=== PATIENT | female | born 1955 | race Caucasian/White ===

== ENCOUNTER 2016-07-21 21:34 | Observation (INO) | payer MEDICAID ==
[~2016-07-21] VITALS: Ht 154.9 cm; Wt 71.8 kg
[~2016-07-21 21:34] MED LIST: ALDACTONE100 MG PO; ALDACTONE50 MG PO; ALLEGRA-D1 TAB.SR . PO; ASPIRIN81 MG PO; BRILINTA90 MG PO; CHRONULAC30 ML PO; EPOGEN20000 U/ML SQ; HYDROCHLOROTH12.5 M1 PO; HYDROCODONE-APA1 TAB PO; IPRAT-ALBUT 0.5-3 ML UPD; K-DUR20 MEQ PO; K-TAB10 MEQ PO; KLOR-CON 1010 MEQ PO; LASIX40 MG PO; LASIX80 MG PO; LEVAQUIN500 MG PO; LEVAQUIN750 MG PO; METOLAZONE2.5 MG PO; MUCINEX600 MG PO; MUCUS RELIEF400 MG PO; NORCO 10/325 TA1 TA1 PO; OXYCODONE HCL5 MG PO; OXYCONTIN10 MG PO; PHENERGAN25 M1 PO; RIBASPHERE200 MG PO; SOVALDI PO; TESSALON PERLE100 MG PO; XIFAXAN550 MG PO; ZANAFLEX4 MG PO; ZOFRAN4 MG PO; ZOFRAN8 MG PO
[2016-07-21 22:23] LABS: BASOPHILS 0.3 % (0-2); EOSINOPHILS 0.6 % (0-7); HEMATOCRIT 28.7 % (36.0-48.0); HEMOGLOBIN 9.8 g/dL (12-16); LYMPHOCYTES 24.9 % (15-50); MCH 35.1 pg (26.0-34.0); MCHC 34.1 g/dL (31.0-37.0); MCV 102.9 fL (80.0-100.0); MEAN PLATELET VOLUME 9.4 fL (7.4-10.4); MONOCYTES 12.6 % (2-11); NEUTROPHILS 61.6 % (40-80); RBC 2.79 10x6/uL (4.00-5.40); WBC 3.2 10x3/uL (4.8-10.8)
[2016-07-21 22:24] LABS: PLATELET COUNT 102 10x3/uL (130-400)
[2016-07-21 22:44] LABS: ALBUMIN 2.7 g/dL (3.4-5.0); ANION GAP 11.6 mmol/L (8-16); BILIRUBIN - TOTAL 3.32 mg/dL (0.2-1.3); CALCIUM 9.1 mg/dL (8.5-10.1); POTASSIUM - SERUM 3.6 mmol/L (3.5-5.1); PROTEIN - SERUM 6.6 g/dL (6.4-8.2)
[2016-07-21 22:52] LABS: APPEARANCE HAZY (CLEAR); BILIRUBIN NEGATIVE (NEGATIVE); COLOR YELLOW (YELLOW); GLUCOSE NEGATIVE (NEGATIVE); KETONE NEGATIVE (NEGATIVE); LEUKOCYTE ESTERASE TRACE (NEGATIVE); NITRITE NEGATIVE (NEGATIVE); PROTEIN NEGATIVE (NEGATIVE); SPECIFIC GRAVITY 1.025 (1.005-1.020)
[2016-07-21 22:54] LABS: BACTERIA MODERATE /hpf (NONE SEEN); EPITHELIAL CELLS 0-5 /hpf (0-5); MUCUS <1+ /lpf (NONE SEEN); RED CELLS - URINE 0-5 /hpf (0-5); WHITE CELLS - URINE 0-5 /hpf (0-5); YEAST <1+ /hpf (NONE SEEN)
[2016-07-21 22:58] LABS: UDS - AMPHET NEGATIVE QUAL (NEGATIVE); UDS - BARB NEGATIVE QUAL (NEGATIVE); UDS - BENZO NEGATIVE QUAL (NEGATIVE); UDS - COCAINE NEGATIVE QUAL (NEGATIVE); UDS - METH NEGATIVE QUAL (NEGATIVE); UDS - OPIATE NEGATIVE QUAL (NEGATIVE); UDS - PCP NEGATIVE QUAL (NEGATIVE); UDS - THC NEGATIVE QUAL (NEGATIVE)
[2016-07-22] VITALS (7 sets, daily range): BP systolic 94–138; BP diastolic 52–68; Ht 154.9 cm; Wt 71.8 kg
--- NOTE | 2016-07-22 03:18 | NUR ---
PT ADMITTED TO ROOM 2129 AT 0130 FROM ER. ALERT/ORIENTED; ABLE TO TRANSFER SELF INTO BED AND THEN AMBULATE AROUND ROOM WITHOUT . ADMISSION HISTORY AND ASSESSMENT INITIATED. IVF NS @ 50ML/HR INFUSING.
--- NOTE | 2016-07-22 10:22 | NUR ---
ASSESSMENT COMPLETED. DENIES ANY NEEDS. TELEMERTY SHOWS SR AT 99. PT IS UP AB ANDREEA. WILL MONITOR
[2016-07-22 11:20] LABS: HEMATOCRIT 24.5 % (36.0-48.0); HEMOGLOBIN 8.4 g/dL (12-16); MCH 35.4 pg (26.0-34.0); MCHC 34.3 g/dL (31.0-37.0); MCV 103.4 fL (80.0-100.0); MEAN PLATELET VOLUME 9.1 fL (7.4-10.4); RBC 2.37 10x6/uL (4.00-5.40); RDW 16.1 % (11.5-14.5); WBC 2.5 10x3/uL (4.8-10.8)
[2016-07-22 11:27] LABS: PLATELET COUNT 76 10x3/uL (130-400)
[2016-07-22 11:41] LABS: ALBUMIN 2.2 g/dL (3.4-5.0); ANION GAP 9.1 mmol/L (8-16); BILIRUBIN - TOTAL 2.54 mg/dL (0.2-1.3); CALCIUM 8.1 mg/dL (8.5-10.1); CARBON DIOXIDE 26.4 mmol/L (21.0-32.0); CREATININE - SERUM 0.9 mg/dL (0.6-1.3); POTASSIUM - SERUM 3.5 mmol/L (3.5-5.1); PROTEIN - SERUM 5.4 g/dL (6.4-8.2)
[2016-07-22 12:26] LABS: EOSINOPHILS 2 % (0-7); LYMPHOCYTES 50 % (15-50); MONOCYTES 3 % (2-11); NEUTROPHILS 45 % (40-80); PLATELET ESTIMATE DECREASED
--- NOTE | 2016-07-22 12:27 | NUR ---
RESTING QUIETLY NAD NOTED SIGNIFICANT OTHER AT BEDSIDE
--- NOTE | 2016-07-22 14:54 | NUR ---
LYING QUIETLY. DENIES ANY NEEDS. TELEMERTY SHOWS SR. WILL MONITOR
[2016-07-22 17:03] LABS: INR 1.6 (0.85-1.17)
[2016-07-22 17:40] LABS: BASOPHILS 1.9 % (0-2); EOSINOPHILS 3.4 % (0-7); HEMATOCRIT 25.9 % (36.0-48.0); HEMOGLOBIN 8.8 g/dL (12-16); IMMATURE GRANULOCYTES 1.1 % (0-5); MCH 34.5 pg (26.0-34.0); MCV 101.6 fL (80.0-100.0); MEAN PLATELET VOLUME 9.9 fL (7.4-10.4); MONOCYTES 9.2 % (2-11); NEUTROPHILS 35.4 % (40-80); PLATELET COUNT 81 10x3/uL (130-400); RBC 2.55 10x6/uL (4.00-5.40); RDW 15.8 % (11.5-14.5); WBC 2.6 10x3/uL (4.8-10.8)
--- NOTE | 2016-07-22 18:37 | NUR ---
UP TO BATHROOM. DENIES ANY NEEDS. TELEMETRY SHOWS SR. WILL MONITOR
--- NOTE | 2016-07-22 19:58 | NUR ---
RESUME CARE OF PT, [id number], IV-L. HAND-COMPLAINS IT IS HURTING, CALL GABRIEL PALACIOS TO RESTART IV, BED IS LOW, SRX2, FAMILY AT BEDSIDE, CALL LIGHT IN REACH, WILL CONTINUE WITH PLAN OF CARE
[2016-07-23 00:07] LABS: HEMATOCRIT 24.8 % (36.0-48.0); HEMOGLOBIN 8.8 g/dL (12-16); LYMPHOCYTES 35.3 % (15-50); MCH 35.6 pg (26.0-34.0); MCHC 35.5 g/dL (31.0-37.0); MCV 100.4 fL (80.0-100.0); MEAN PLATELET VOLUME 8.6 fL (7.4-10.4); NEUTROPHILS 50.9 % (40-80); RBC 2.47 10x6/uL (4.00-5.40); RDW 16.6 % (11.5-14.5); WBC 2.9 10x3/uL (4.8-10.8)
[2016-07-23 00:13] LABS: PLATELET COUNT 98 10x3/uL (130-400)
--- NOTE | 2016-07-23 00:30 | NUR ---
MANGLE TENDER CLOTH AT BEDSIDE FOR VS. NEEDS ADDRESSED, CALL LIGHT IN REACH. WILL CONT TO MONITOR.
--- NOTE | 2016-07-23 02:46 | NUR ---
ASSESSMENT COMPLETE, SLEEPING, FAMILY AT BEDSIDE, CALL LIGHT IN REACH, CONTINUE PLAN OF CARE
[2016-07-23 06:03] LABS: BASOPHILS 0.8 % (0-2); EOSINOPHILS 5.3 % (0-7); HEMATOCRIT 27.3 % (36.0-48.0); HEMOGLOBIN 9.4 g/dL (12-16); LYMPHOCYTES 38.5 % (15-50); MCH 35.6 pg (26.0-34.0); MCHC 34.4 g/dL (31.0-37.0); MEAN PLATELET VOLUME 9.6 fL (7.4-10.4); MONOCYTES 14.3 % (2-11); NEUTROPHILS 41.1 % (40-80); PLATELET COUNT 79 10x3/uL (130-400); RBC 2.64 10x6/uL (4.00-5.40); RDW 16.4 % (11.5-14.5); WBC 2.7 10x3/uL (4.8-10.8)
[2016-07-23 06:05] VITALS: BP 100/46
[2016-07-23 06:09] LABS: MCV 103.4 fL (80.0-100.0)
[2016-07-23 06:24] LABS: ALBUMIN 2.3 g/dL (3.4-5.0); ANION GAP 11.2 mmol/L (8-16); BILIRUBIN - TOTAL 2.2 mg/dL (0.2-1.3); CALCIUM 8.2 mg/dL (8.5-10.1); CARBON DIOXIDE 28.1 mmol/L (21.0-32.0); POTASSIUM - SERUM 3.3 mmol/L (3.5-5.1); PROTEIN - SERUM 5.7 g/dL (6.4-8.2)
--- NOTE | 2016-07-23 07:48 | NUR ---
ASSESSMENT DONE. DENIES NEEDS.
[2016-07-23 08:28] VITALS: BP 116/45
--- NOTE | 2016-07-23 09:48 | NUR ---
IV PATENT. CALL LIGHT IN REACH. NO NEEDS VOICED. WILL MONITOR.
[2016-07-23 11:21] LABS: BASOPHILS 1.2 % (0-2); HEMATOCRIT 26.3 % (36.0-48.0); HEMOGLOBIN 9.2 g/dL (12-16); MCH 36.1 pg (26.0-34.0); MCV 103.1 fL (80.0-100.0); MEAN PLATELET VOLUME 10.1 fL (7.4-10.4); MONOCYTES 13.9 % (2-11); NEUTROPHILS 45.9 % (40-80); PLATELET COUNT 82 10x3/uL (130-400); RBC 2.55 10x6/uL (4.00-5.40); RDW 16.2 % (11.5-14.5); WBC 2.6 10x3/uL (4.8-10.8)
--- NOTE | 2016-07-23 11:25 | NUR ---
PATIENT REFUSES SCD'S, UP AD ANDREEA. BEEN TO NURSES STATION X 2 FOR PAIN MEDICAION.
[2016-07-23 16:05] VITALS: BP 137/67
[2016-07-23 17:14] LABS: BASOPHILS 0.7 % (0-2); EOSINOPHILS 4.5 % (0-7); HEMATOCRIT 31.5 % (36.0-48.0); HEMOGLOBIN 10.8 g/dL (12-16); IMMATURE GRANULOCYTES 0.3 % (0-5); LYMPHOCYTES 38.7 % (15-50); MCH 35.9 pg (26.0-34.0); MCHC 34.3 g/dL (31.0-37.0); MCV 104.7 fL (80.0-100.0); MEAN PLATELET VOLUME 10.2 fL (7.4-10.4); MONOCYTES 13.2 % (2-11); NEUTROPHILS 42.6 % (40-80); PLATELET COUNT 91 10x3/uL (130-400); RBC 3.01 10x6/uL (4.00-5.40); RDW 16.1 % (11.5-14.5); WBC 2.9 10x3/uL (4.8-10.8)
--- NOTE | 2016-07-23 17:52 | NUR ---
WITHOUT CHANGES OR DISTRESS NOTED AT THIS TIME. DENIES NEEDS.
[2016-07-23 20:46] VITALS: BP 108/75
[2016-07-23 23:58] VITALS: BP 138/68
[2016-07-24 00:01] LABS: BASOPHILS 0.9 % (0-2); EOSINOPHILS 2.4 % (0-7); HEMATOCRIT 31.6 % (36.0-48.0); HEMOGLOBIN 10.9 g/dL (12-16); LYMPHOCYTES 24.5 % (15-50); MCH 36.1 pg (26.0-34.0); MCHC 34.5 g/dL (31.0-37.0); MCV 104.6 fL (80.0-100.0); MEAN PLATELET VOLUME 9.9 fL (7.4-10.4); MONOCYTES 12.7 % (2-11); NEUTROPHILS 59.5 % (40-80); PLATELET COUNT 104 10x3/uL (130-400); RBC 3.02 10x6/uL (4.00-5.40); RDW 16.3 % (11.5-14.5); WBC 3.4 10x3/uL (4.8-10.8)
--- NOTE | 2016-07-24 03:42 | NUR ---
ASSESSMENT DONE, ALERT AND ORIENTED, BED IN LOW LOCKED POSITION, CALL LIGHT AND WATER IN REACH, cpoc.
[2016-07-24 04:11] VITALS: BP 126/60
[2016-07-24 05:44] LABS: EOSINOPHILS 4.3 % (0-7); LYMPHOCYTES 33.6 % (15-50); MCH 36.1 pg (26.0-34.0); MCHC 34.5 g/dL (31.0-37.0); MCV 104.7 fL (80.0-100.0); MEAN PLATELET VOLUME 9.9 fL (7.4-10.4); MONOCYTES 14.5 % (2-11); NEUTROPHILS 46.6 % (40-80); PLATELET COUNT 94 10x3/uL (130-400); RBC 2.77 10x6/uL (4.00-5.40); RDW 16.4 % (11.5-14.5)
[2016-07-24 06:26] LABS: ALBUMIN 2.6 g/dL (3.4-5.0); BILIRUBIN - TOTAL 2.14 mg/dL (0.2-1.3); CALCIUM 8.6 mg/dL (8.5-10.1); CARBON DIOXIDE 28.8 mmol/L (21.0-32.0); POTASSIUM - SERUM 3.8 mmol/L (3.5-5.1); PROTEIN - SERUM 6.4 g/dL (6.4-8.2)
[2016-07-24 06:30] LABS: CREATININE - SERUM 1.3 mg/dL (0.6-1.3)
[2016-07-24 09:18] LABS: FOLATE (FOLIC ACID) - SERUM 7.5 ng/mL (>3.0)
[2016-07-24 09:49] VITALS: BP 120/51
--- NOTE | 2016-07-24 11:10 | NUR ---
PT TO GI LAB FOR EGD WITH TIYUE
--- NOTE | 2016-07-24 13:20 | NUR ---
PT BACK TO ROOM FROM GI LAB, REQUESTING FOOD AND LACTULOSE
[2016-07-24 14:11] LABS: BASOPHILS 0.9 % (0-2); EOSINOPHILS 3.7 % (0-7); HEMATOCRIT 31.6 % (36.0-48.0); HEMOGLOBIN 10.6 g/dL (12-16); LYMPHOCYTES 34.7 % (15-50); MCH 35.7 pg (26.0-34.0); MCHC 33.5 g/dL (31.0-37.0); MCV 106.4 fL (80.0-100.0); NEUTROPHILS 51.7 % (40-80); PLATELET COUNT 97 10x3/uL (130-400); RBC 2.97 10x6/uL (4.00-5.40); RDW 16.4 % (11.5-14.5); WBC 3.2 10x3/uL (4.8-10.8)
--- NOTE | 2016-07-24 14:54 | NUR ---
Nutrition education: Provided pt with end-stage liver disease diet. Reviewed with pt. Pt with fair understanding of information provided. Handout given. RDN name and phone number provided.
--- NOTE | 2016-07-24 16:45 | NUR ---
ADVISED PT OF PLAN TO DISCHARGE. PT ASKED ABOUT LAB VALUES INFORMATION PROVIDED TO PT.
--- NOTE | 2016-07-24 18:08 | NUR ---
DISCHARGE PAPERS PROVIDED AND SIGNED. TEACHING COMPLETED. PT DENIES ANY QUESTIONS OR CONCERNS. SON AT BEDSIDE TO TRANSPORT. NO FURTHER NEEDS.
== END 2016-07-24 18:40 | disposition home or self-care (01) ==
LOC: D.ER 21:34 → D.M2 07-22 01:03 → OBSVTIME 07-22 01:03 → D.M2 07-24 18:40
PROVIDERS: Emergency Medicine; Internal Medicine Gastroenterology; ADMIT Family Medicine Adult Medicine
DX: K72.90 Hepatic failure, unspecified without coma (principal); K74.60 Unspecified cirrhosis of liver; B18.2 Chronic viral hepatitis C; D69.6 Thrombocytopenia, unspecified; D64.9 Anemia, unspecified; K21.9 Gastro-esophageal reflux disease without esophagitis; I25.10 Atherosclerotic heart disease of native coronary artery without angina pectoris; I50.9 Heart failure, unspecified

== ENCOUNTER 2017-02-10 15:02 | Inpatient (IN) | payer MEDICAID ==
[~2017-02-10] VITALS: Ht 154.9 cm; Wt 76.0 kg
[2017-02-10 15:33] LABS: HEMATOCRIT 32.9 % (36.0-48.0); HEMOGLOBIN 11.6 g/dL (12-16); MCH 36.5 pg (26.0-34.0); MCHC 35.3 g/dL (31.0-37.0); MCV 103.5 fL (80.0-100.0); MEAN PLATELET VOLUME 10.5 fL (7.4-10.4); RBC 3.18 10x6/uL (4.00-5.40); RDW 15.6 % (11.5-14.5)
[2017-02-10 15:59] LABS: PLATELET COUNT 65 10x3/uL (130-400); WBC 1.1 10x3/uL (4.8-10.8)
[2017-02-10 16:04] LABS: ALBUMIN 2.4 g/dL (3.4-5.0); ALKALINE PHOSPHATASE 139 U/L (46-116); ALT (SGPT) 36 U/L (10-68); BILIRUBIN - TOTAL 1.59 mg/dL (0.2-1.3); CALCIUM 7.4 mg/dL (8.5-10.1); CARBON DIOXIDE 22.1 mmol/L (21.0-32.0); CHLORIDE - SERUM 106 mmol/L (98-107); CREATININE - SERUM 0.7 mg/dL (0.6-1.3); POTASSIUM - SERUM 3.9 mmol/L (3.5-5.1); PROTEIN - SERUM 5.9 g/dL (6.4-8.2); SODIUM 135 mmol/L (136-145); UREA NITROGEN 10 mg/dL (7-18); eGFR NON AFRICAN AMERICAN > 90 mL/min (90-120)
[2017-02-10 16:11] LABS: MAGNESIUM - SERUM 1.8 mg/dL (1.8-2.4); PRO BNP 57 pg/mL (0-125)
[2017-02-10 16:13] LABS: CALC OSMOLALITY 269 mosm/kg (275-300); GLUCOSE 123 mg/dL (74-106); TROPONIN-I < 0.017 ng/mL (0.000-0.060)
[2017-02-10 16:25] LABS: LYMPHOCYTES 50 % (15-50); MONOCYTES 4 % (2-11); NEUTROPHILS 42 % (40-80); PLATELET ESTIMATE DECREASED
[2017-02-10 16:59] LABS: APPEARANCE CLEAR (CLEAR); BILIRUBIN NEGATIVE (NEGATIVE); COLOR DK YELLOW (YELLOW); GLUCOSE NEGATIVE (NEGATIVE); KETONE NEGATIVE (NEGATIVE); NITRITE NEGATIVE (NEGATIVE); PROTEIN NEGATIVE (NEGATIVE); UROBILINOGEN NORMAL (NORMAL)
--- NOTE | 2017-02-10 18:00 | NUR ---
RECEIVED PT ON FLOOR FROM ER. ALERT AND ORIENTED X4. ORIENTED TO ROOM, FUNCTIONS OF CALL LIGHT AND TV. DENIES ANY NEEDS OR PAIN AT THIS TIME. BED IN LOWEST POSITION, SR X2. NO FAMILY AT BEDSIDE. RIGHT HAND IV 20G. WILL CONTINUE TO MONITOR
[2017-02-10 20:00] VITALS: BP 128/62
[2017-02-10 23:59] VITALS: BP 130/57; BMI 32.2
[2017-02-11 04:00] VITALS: BP 134/61
[2017-02-11 05:59] LABS: BASOPHILS 0 % (0-2); EOSINOPHILS 0 % (0-7); HEMATOCRIT 31.3 % (36.0-48.0); LYMPHOCYTES 16.7 % (15-50); MCH 35.9 pg (26.0-34.0); MCHC 35.1 g/dL (31.0-37.0); MCV 102.3 fL (80.0-100.0); MEAN PLATELET VOLUME 11.1 fL (7.4-10.4); MONOCYTES 10.3 % (2-11); PLATELET COUNT 60 10x3/uL (130-400); RBC 3.06 10x6/uL (4.00-5.40); RDW 15.2 % (11.5-14.5)
[2017-02-11 06:08] LABS: WBC 1.6 10x3/uL (4.8-10.8)
[2017-02-11 06:26] LABS: ALBUMIN 2.3 g/dL (3.4-5.0); ANION GAP 16.2 mmol/L (8-16); BILIRUBIN - TOTAL 1.16 mg/dL (0.2-1.3); CARBON DIOXIDE 20.8 mmol/L (21.0-32.0); CHOL - HDL RATIO 2.2 ratio (2.3-4.1); PROTEIN - SERUM 5.6 g/dL (6.4-8.2)
[2017-02-11 08:49] VITALS: BP 130/68
--- NOTE | 2017-02-11 10:51 | NUR ---
Patient Name: BRENDA CLANCY Admission Status: ER Accout number: [id number] Admission Date: 02-10-2017 : 1955 Admission Diagnosis: Attending: MIHIR MONROE Current LOS: 1 Anticipated DC Date: 02-14-2017 Planned Disposition: Home Primary Insurance: MEDICAID [place] Discharge Planning Comments: CM MET WITH PATIENT REGARDING D/C NEEDS AND PLANS. PATIENT STATED SHE LIVES WITH HER SON (MEMO) AND HIS (MARYLOU). FAMILY WILL DRIVE HER HOME AT DISCHARGE. PATIENT STATED SHE IS INDEPENDENT WITH HER CARE AND HAS A WALKER, WC, HOSP BED, SCOOTER, AND SHOWER CHAIR AT HOME. PATIENTS PCP IS DR. OH AND PHARMACY IS [facility]. PATIENT REFUSING HH AT THIS TIME. CM WILL CONTINUE TO FOLLOW PATIENT WITH D/C NEEDS AND PLANS. PCP DR. ALTHEA MARTIN [facility]- [phone] JOY (XHG) [phone] Medical Stenographer: Magda Juarez Is the patient Alert and Oriented? Yes 0 * How many steps to enter\exit or inside your home? 4 W/RAILS 0 * PCP DR. OH 0 * Pharmacy [facility] 0 * Preadmission Environment Home with Family 0 * ADLs Independent 0 * Equipment Hospital Bed Shower Chair Walker Wheelchair 0 * Other Equipment SCOOTER 0 * List name and contact numbers for known caregivers / representatives who currently or will assist patient after discharge: MARYLOU DIL) [phone] 0 * Community resources currently utilized None 0 * Additional services required to return to the preadmission environment? Yes 0 * Can the patient safely return to the preadmission environment? Yes 0 * Has this patient been hospitalized within the prior 30 days at any hospital? No 0 Grand Total: 0
[2017-02-11 12:10] VITALS: BP 179/74
[2017-02-11 15:42] VITALS: BMI 32.1
[2017-02-11 16:45] VITALS: BP 134/70
[2017-02-11 17:16] VITALS: BP 93/33; Ht 154.9 cm; Wt 76.0 kg
--- NOTE | 2017-02-11 19:45 | NUR ---
RECIEVED SHIFT REPORT. PT IS LYING IN BED. ALERT AND ORIENTED AND ABLE TO VERBALIZE NEEDS. NO IV ACCESS AT THIS TIME. PT IS AMBULATORY BUT WAS INSTRUCTED TO CALL FOR ANY ASSISTANCE NEEDED. PT STATES PAIN IS 9/10. SCD'S OFF AT THIS TIME PER PT REQUEST. ISOLATION PRECAUTIONS ARE IN PLACE. NO NEEDS ARE VERBALIZED AT THIS TIME. WILL CONTINUE TO MONITOR. SIDE RAILS ARE UP X 2. BED IS IN LOWEST POSITION. CALL LIGHT IS WITHIN REACH.
[2017-02-11 20:00] VITALS: BP 132/93
--- NOTE | 2017-02-11 21:08 | NUR ---
SHIFT ASSESSMENT COMPLETED. NIGHT MEDS GIVEN WITH NO PROBLEMS. PT C/O PAIN 12/25. ADMINISTERED PRESCRIBED PRN NORCO PER ORDER. DENIES FURTHER NEEDS. WILL MONITOR. ISOLATION PRECAUTIONS IN PLACE. SIDE RAILS X 2. BED LOW. CALL LIGHT IN REACH.
[2017-02-12 04:00] VITALS: BP 137/65
[2017-02-12 05:34] LABS: BASOPHILS 0.1 % (0-2); EOSINOPHILS 0.1 % (0-7); HEMATOCRIT 32.8 % (36.0-48.0); HEMOGLOBIN 11.4 g/dL (12-16); IMMATURE GRANULOCYTES 1.9 % (0-5); MCH 36.2 pg (26.0-34.0); MCHC 34.8 g/dL (31.0-37.0); MCV 104.1 fL (80.0-100.0); MEAN PLATELET VOLUME 10.9 fL (7.4-10.4); MONOCYTES 5.6 % (2-11); NEUTROPHILS 85.3 % (40-80); PLATELET COUNT 68 10x3/uL (130-400); RBC 3.15 10x6/uL (4.00-5.40); RDW 16.1 % (11.5-14.5)
[2017-02-12 05:57] LABS: ALBUMIN 2.4 g/dL (3.4-5.0); BILIRUBIN - TOTAL 2.14 mg/dL (0.2-1.3); CALCIUM 7.6 mg/dL (8.5-10.1); CREATININE - SERUM 0.9 mg/dL (0.6-1.3); POTASSIUM - SERUM 3.7 mmol/L (3.5-5.1); PROTEIN - SERUM 5.7 g/dL (6.4-8.2)
[2017-02-12 06:00] LABS: ANION GAP 10.6 mmol/L (8-16); CARBON DIOXIDE 28.1 mmol/L (21.0-32.0)
[2017-02-12 06:28] LABS: WBC 17.2 10x3/uL (4.8-10.8)
--- NOTE | 2017-02-12 07:30 | NUR ---
PT WAS RECEIVED LYING IN BED THIS AM. SHE IS AWAKE AND ALERT. LUNGS- WITH WHEEZING NOTED BILATERALLY HEART- RRR. ABD- SOFT, NONTENDER , BS+. EXT- NO EDEMA NOTED. IV PATENT R HAND. PT IS ON DROPLET ISOLATION. BED IS LOW. SIDE RAILS UP X 2 AND CALL LIGHT IN REACH. SCD'S INTACT.
[2017-02-12 08:40] VITALS: BP 124/58
--- NOTE | 2017-02-12 10:41 | NUR ---
PT IS SITTING UP IN BED. REQUEST TO SEE OLIVER JAMISON. BED IS LOW, SIDE RAILS UP X 2 AND CALL LIGHT IN REACH. INFORMED YAQUELIN OF REQUEST. PT OFFERS NO COMPLAINTS.
[2017-02-12 12:45] VITALS: BP 123/65
--- NOTE | 2017-02-12 14:13 | NUR ---
DR OH IS HERE TO SEE PT. WILL REVIEW NEW ORDERS.
--- NOTE | 2017-02-12 15:30 | NUR ---
DR MILLER IS HERE TO SEE PT. HE DISCUSSED PLAN OF CARE WITH PT AND SHE WAS SATISFIED WITH PLAN OF CARE. NEW ORDERS NOTED.
--- NOTE | 2017-02-12 15:40 | NUR ---
PT C/O PAIN AND WOULD LIKE PAIN MED. PAIN MED HAS BEEN CHANGED. OXY IR GIVEN 5M 2 PO.
--- NOTE | 2017-02-12 16:42 | NUR ---
PT IS RESTING IN BED. HER IS AT BEDSIDE. SHE OFFERS NO COMPLAINTS AT THIS TIME. BED IS LOW. SIDE RAILS UP X 2 AND CALL LIGHT IN REACH.
--- NOTE | 2017-02-12 17:22 | NUR ---
OT NOTE: PT COMPLETED EOB SITTING WITH DYNAMIC BALANCE AXS WITH SPV. THANK YOU, MIGUEL NAVARRETE/Elif
--- NOTE | 2017-02-12 18:49 | NUR ---
PT IS RESTING IN BED. SHE OFFERS NO COMPLAINTS. BED IS LOW, SIDE RAILS UP X 2 AND CALL LIGHT IN REACH.
--- NOTE | 2017-02-12 19:25 | NUR ---
RECIEVED SHIFT REPORT. PT IS LYING IN BED. ALERT AND ORIENTED AND ABLE TO VERBALIZE NEEDS. IV IS PATENT AND SALINE LOC. PT IS AMBULATORY BUT WAS INSTRUCTED TO CALL FOR ANY ASSISTANCE NEEDED. SCD'S OFF AT THIS TIME PER PT REQUEST. PT STATES PAIN IS 6/10. NO NEEDS ARE VERBALIZED AT THIS TIME. WILL CONTINUE TO MONITOR. ISOLATION PRECAUTIONS ARE IN PLACE. NO NEEDS ARE VERBALIZED AT THIS TIME. WILL CONTINUE TO MONITOR. SIDE RAILS ARE UP X 2. BED IS IN LOWEST POSITION. CALL LIGHT IS WITHIN REACH.
--- NOTE | 2017-02-12 22:22 | NUR ---
SHIFT ASSESSMENT COMPLETED. NIGHT MEDS GIVEN WITH NO PROBLEMS. PT REFUSED SCHEDULED ALDACTONE. PT C/O PAIN 09/24. ADMINISTERED PRESCRIBED PRN OXY IR PER ORDER. PT ALSO REQUESTING PRN ZANAFLEX. ADMINISTERED PER ORDER. DENIES FURTHER NEEDS. WILL MONITOR. SIDE RAILS X 2. BED LOW. CALL LIGHT IN REACH. ISOLATION PRECAUTIONS IN PLACE.
[2017-02-13 00:27] VITALS: BP 118/59
[2017-02-13 04:59] VITALS: BP 120/58
[2017-02-13 06:19] LABS: BASOPHILS 0.1 % (0-2); EOSINOPHILS 0.5 % (0-7); HEMATOCRIT 33.6 % (36.0-48.0); HEMOGLOBIN 11.8 g/dL (12-16); IMMATURE GRANULOCYTES 0.2 % (0-5); LYMPHOCYTES 15.6 % (15-50); MCH 36.5 pg (26.0-34.0); MCHC 35.1 g/dL (31.0-37.0); MEAN PLATELET VOLUME 10.2 fL (7.4-10.4); MONOCYTES 6.4 % (2-11); NEUTROPHILS 77.2 % (40-80); PLATELET COUNT 77 10x3/uL (130-400); RBC 3.23 10x6/uL (4.00-5.40); RDW 15.9 % (11.5-14.5)
[2017-02-13 06:22] LABS: WBC 11.4 10x3/uL (4.8-10.8)
[2017-02-13 07:00] LABS: ALBUMIN 2.5 g/dL (3.4-5.0); ANION GAP 10.6 mmol/L (8-16); BILIRUBIN - TOTAL 2.78 mg/dL (0.2-1.3); CALCIUM 8.3 mg/dL (8.5-10.1); CREATININE - SERUM 1.1 mg/dL (0.6-1.3); POTASSIUM - SERUM 3.6 mmol/L (3.5-5.1); PROTEIN - SERUM 6.3 g/dL (6.4-8.2)
--- NOTE | 2017-02-13 07:40 | NUR ---
PT IS LYING IN BED, RESTING. SHE STATES THAT SHE IS SLEEPY. FEMALE AT BESIDE. GEN- AWAKE AND ALERT. LUNGS- WITH WHEEZING BILATERALLY. HEART- RRR. SOFT WITH GENERALIZED TENDERNESS. EXT. WITH MINIMAL EDEMA. BED IS LOW. SIDE RAILS UP X 2 AND CALL LIGHT IN REACH. SHE REFUSES SCD'S. IV PATENT R HAND.
[2017-02-13 08:25] VITALS: BP 126/60
--- NOTE | 2017-02-13 10:17 | NUR ---
AM MEDS GIVEN. PT TOLERATED TAKING THEM WELL. OT WAS IN ROOM TO EVALUATE HER SWALLOWING. SHE OFFERS NO COMPLAINTS. PT IS NOW IN ROOM TO WALK PT.
--- NOTE | 2017-02-13 10:37 | NUR ---
OT NOTE: PT ABLE TO PERFORM B UE/LE EXS WITH MOD REST BREAKS TO COMPLETE 15 REPS FOR EACH EX. BED MOB AND TRANSFERS WITH SPV; ABLE TO HARSH SOCKS INDEP; TOILETING WITH SPV TAWNYA AGUIRREOTR/L
--- NOTE | 2017-02-13 11:38 | CN ---
PATIENT NAME:BRENDA CLANCY MEDICAL RECORD: [id number] : [birth year] LOCATION:D.[facility] [address] [id number] ADMIT DATE: 02/10/17 ACCOUNT: [id number] CONSULTING PHYSICIAN: TOY MILLER MD REFERRING PHYSICIAN: DENNIS MCKEON MD DATE OF CONSULTATION: 02/11/2017 CONSULT REQUESTING PHYSICIAN: Dr. Dennis Mckeon REASON FOR CONSULTATION: Pneumonia and flu. HISTORY OF PRESENT ILLNESS: Ms. Clancy is a 61-year-old very pleasant lady. She was sick for the last 3 days. She was initially seen in the urgent care, told that she has influenza type B positive. The patient was not getting any better. The patient came into the ER for evaluation, she was found that she had pneumonia in the right lower lobe, right middle lobe as well as there was leukopenia. REVIEW OF SYSTEMS: Mainly in the history of present illness. PAST MEDICAL HISTORY: Very complex, 1. Hepatitis C with cirrhosis of liver. 2. History of ascites. 3. Coronary artery disease, status post angioplasty. 4. History of congestive heart failure. 5. Possible diastolic dysfunction. 6. History of respiratory failure in the past. PAST SURGICAL HISTORY: 1. She has a tubal ligation. 2. Herniorrhaphy with mesh placement. 3. Cholecystectomy. 4. Bowel resection with a history of stomach stapling. 5. Cardiac catheterization and stent placement. 6. History of ventral wall repair in 2014. ALLERGIES: SHE IS ALLERGIC TO PLAVIX, HEPARIN, MORPHINE, PENICILLIN, WHICH CAUSING HER RASH. MEDICATIONS: She is on meropenem IV, Levaquin IV. Her other medications are reviewed. PERSONAL AND SOCIAL HISTORY: The patient is a nonsmoker, nondrinker. FAMILY HISTORY: Significant for lung disease and cancer. PHYSICAL EXAMINATION: GENERAL: The patient is lying comfortably in bed. She is not in acute distress. VITAL SIGNS: The blood pressure is 179/74, pulse is 94 to 132, temperature 98.4, SpO2 is 98% on room air. HEAD, EYES, EARS, NOSE, AND THROAT: Conjunctivae pink, sclerae not icteric. NECK: Supple, no JVD. CHEST: Excursion is minimal on both sides. There is a right basal crackle. No wheezing. CONSULT REPORT [id number] BRENDA CLANCY HEART: Rhythm regular, normal sound, no murmur. ABDOMEN: Soft. Bowel sounds present. No hepatosplenomegaly. RECTAL: Deferred. EXTREMITIES: No cyanosis, no clubbing, no pedal edema. SKIN: Warm, normal turgor. CENTRAL NERVOUS SYSTEM: The patient is awake and alert. There is no obvious cranial nerve abnormality. The gait was normal. LABORATORY DATA: Chest Radiograph: There is a right perihilar infiltrate, right lower lobe. There is a small left pleural effusion. The repeat chest radiograph on the and there is a right basilar infiltrate with a small right pleural effusion, possible parapneumonic. LABORATORY DATA: CBC: WBC 1.1, hemoglobin 11.1, hematocrit 32.9, and platelet count is 65. IMPRESSION: 1. Right lower lobe and right middle lobe pneumonia, most likely community-acquired pneumonia. 2. Right small pleural effusion, possible parapneumonic. 3. Flu with positive for influenza B. 4. Pancytopenia with leukopenia, anemia, and thrombocytopenia. 5. Hepatitis C with cirrhosis of the liver. 6. Congestive heart failure. 7. Coronary artery disease. RECOMMENDATIONS: 1. Continue Levaquin and meropenem. 2. Start on antitussive. 3. Leukopenia and thrombocytopenia per Dr. James. 4. Follow up labs and chest radiographs. Dr. Mckeon thank you for involving me in the care of Ms. Clancy. TRANSINT:[id number] Voice Confirmation ID: [id number] DOCUMENT ID: [id number] TOY MILLER MD at 1138 CC: DENNIS MCKEON MD [id number] DICTATION DATE: 02/11/17 1556 CHILD AND ADOLESCENT THERAPIST: 02/11/17 2309 ADM IN [place] [id number] [place] [address]
[2017-02-13 12:00] VITALS: BP 152/68
--- NOTE | 2017-02-13 13:59 | NUR ---
NUTRITION F/U CHART REVIEWED. PT VISIT NUMEROUS TIMES YESTERDAY PROVIDING MEAL TRAYS, MENUS. ASSISTING WITH MEAL SETUP. INDEPENDENT WITH MENU SELECTIONS TODAY. REMAINS IN ISOLATION. RD FOLLOWING
[2017-02-13 16:00] VITALS: BP 125/72
--- NOTE | 2017-02-13 17:49 | NUR ---
OT NOTE: PT COMPLETED EOB SITTING WITH SPV. PT COMPLETED DYNAMIC STANDING WITH SPV. THANK YOU, MIGUEL NAVARRETE/Elif
--- NOTE | 2017-02-13 19:35 | NUR ---
RECIEVED SHIFT REPORT. PT IS LYING IN BED. ALERT AND ORIENTED AND ABLE TO VERBALIZE NEEDS. IV IS PATENT AND SALINE LOC AT THIS TIME. PT IS AMBULATORY BUT WAS INSTRUCTED TO CALL FOR ANY ASSISTANCE NEEDED. PT STATES PAIN IS 6/10. SCD'S OFF PER PT REQUEST. NO NEEDS ARE VERBALIZED AT THIS TIME. WILL CONTINUE TO MONITOR. ISOLATION PRECAUTIONS ARE IN PLACE. SIDE RAILS ARE UP X 2. BED IS IN LOWEST POSITION. CALL LIGHT IS WITHIN REACH.
[2017-02-13 20:55] VITALS: BP 136/71
--- NOTE | 2017-02-13 22:36 | NUR ---
SHIFT ASSESSMENT COMPLETED. NIGHT MEDS GIVEN WITH NO PROBLEMS. PT REFUSED SCHEDULED ALDACTONE. PT C/O PAIN 10/25. ADMINISTERED PRESCRIBED PRN OXY IR PER ORDER. DENIES FURTHER NEEDS. WILL MONITOR. SIDE RAILS X 2. BED LOW. CALL LIGHT IN REACH. ISOLATION PRECAUTIONS IN PLACE.
[2017-02-14 05:48] LABS: BASOPHILS 0.3 % (0-2); EOSINOPHILS 0.7 % (0-7); HEMOGLOBIN 11.8 g/dL (12-16); IMMATURE GRANULOCYTES 0.3 % (0-5); LYMPHOCYTES 15.2 % (15-50); MCH 36.3 pg (26.0-34.0); MCHC 34.7 g/dL (31.0-37.0); MCV 104.6 fL (80.0-100.0); MEAN PLATELET VOLUME 10.5 fL (7.4-10.4); MONOCYTES 8.9 % (2-11); NEUTROPHILS 74.6 % (40-80); RBC 3.25 10x6/uL (4.00-5.40); RDW 15.7 % (11.5-14.5)
[2017-02-14 06:01] LABS: PLATELET COUNT 102 10x3/uL (130-400); WBC 7.2 10x3/uL (4.8-10.8)
[2017-02-14 06:21] LABS: ALBUMIN 2.6 g/dL (3.4-5.0); ANION GAP 9.6 mmol/L (8-16); BILIRUBIN - TOTAL 2.72 mg/dL (0.2-1.3); CALCIUM 8.3 mg/dL (8.5-10.1); CARBON DIOXIDE 30.6 mmol/L (21.0-32.0); PROTEIN - SERUM 6.3 g/dL (6.4-8.2)
[2017-02-14 06:23] LABS: POTASSIUM - SERUM 4.2 mmol/L (3.5-5.1)
[2017-02-14 08:00] VITALS: BP 128/64
--- NOTE | 2017-02-14 10:37 | NUR ---
AM MEDS GIVEN. PT WAS AWAKENED TO TAKE MEDS. SHE WAS SLEEPING WELL. RESPIRATORY HER TO DO BREATHING TREATMENTS. MT OFFERS NO COMPLAINTS.
--- NOTE | 2017-02-14 11:38 | NUR ---
OT NOTE: PT REPORTED NOT FEELING WELL TODAY. REPORTED PAIN BELOW R BREAST AT A LEVEL 5/10. ALSO REPORTED FEELING "FUZZY " IN HER HEAD WITH CLOUDY VISION. PT REPORTS THAT THIS HAPPENS AT HOME SOMETIMES. PT CONT TO BE ABLE TO PERFORM SITTING ON EDGE OF BED AND AMB IN ROOM WITH SBA.
--- NOTE | 2017-02-14 11:53 | NUR ---
PT REQUESTED ZOFRAN. 4MG GIVEN PO
[2017-02-14 12:45] VITALS: BP 132/61
--- NOTE | 2017-02-14 15:22 | NUR ---
P[T WAS SLEEPING. EASILY AWAKENS. MEDS GIVEN. IV WAS OFF. CONTINUED PRESENT ANTIBIOTIC THEN WILL START OTHER ONE. BED IS LOW, SIDE RAILS UP X 2 AND CALL LIGHT IN REACH.
--- NOTE | 2017-02-14 17:21 | NUR ---
OT NOTE: PT COMPLETED SIT TO STANDS WITH SPV. PT COMPLETED EOB SITTING WITH SPV. PT COMPLETED BUE AROM EXS FOR INCREASED AX TOLERANCE. THANK YOU, MIGUEL NAVARRETE/Elif
--- NOTE | 2017-02-14 18:53 | NUR ---
PTS IV INFILTRATED. D"CD TIP INTACT.
[2017-02-14 20:16] VITALS: BP 119/60
[2017-02-14 23:41] VITALS: BP 118/62
--- NOTE | 2017-02-15 04:44 | NUR ---
ASSESSED, AT THE BEGINNING OF THE SHIFT. PT IS ALERT AND ORIENTED, ABLE TO VERBALIZE NEEDS. SHE HAS O2 AT 2 LITERS AND IS UP AD ANDREEA TO THE BATHROOM TO VOID. SHE REMAINS IN DROPLET ISOLATION DUE TO FLU AND IS TAKING TAMAFLU. SHE HAS A NEW IV IN HER LEFT WRIST. THE BED IS LOW, RAILS UP X'S 2 WITH THE CALL LIGHT AT HAND.
[2017-02-15 06:02] LABS: ALBUMIN 2.2 g/dL (3.4-5.0); ANION GAP 7.7 mmol/L (8-16); CALCIUM 8.2 mg/dL (8.5-10.1); CARBON DIOXIDE 32.5 mmol/L (21.0-32.0); POTASSIUM - SERUM 4.2 mmol/L (3.5-5.1); PROTEIN - SERUM 5.5 g/dL (6.4-8.2)
[2017-02-15 06:05] LABS: HEMOGLOBIN 10.6 g/dL (12-16); LYMPHOCYTES 19.9 % (15-50); MCH 36.4 pg (26.0-34.0); MCHC 35.3 g/dL (31.0-37.0); MCV 103.1 fL (80.0-100.0); NEUTROPHILS 66.7 % (40-80); PLATELET COUNT 108 10x3/uL (130-400); RBC 2.91 10x6/uL (4.00-5.40); WBC 5.9 10x3/uL (4.8-10.8)
--- NOTE | 2017-02-15 08:15 | NUR ---
PT SEEN AND ASSESSED. REMAINED IN ISOLATION FOR FLU-HOPING TO REMOVE ISOLATION TODAY DUE TO DAY 10/25 OF TAMIFLU-NO CONCERNS VOICED-STATES HAD GOOD NIGHT LAST NIGHT AND HOPING FOR DISCHARGE TODAY. CALL LIGHT IN REACH
--- NOTE | 2017-02-15 08:42 | NUR ---
[facility] INFECTION CONTROL NURSE REMOVED PT FROM ISOLATION
[2017-02-15 09:06] VITALS: BP 117/60
[2017-02-15 12:50] VITALS: BP 170/58
--- NOTE | 2017-02-15 16:51 | NUR ---
CM MET WITH PATIENT REGARDING HOME HEALTH. PATIENT SIGNED THE KARYNA FORM FOR [facility] AT DISCHARGE.
[2017-02-15 17:57] VITALS: BP 121/51
--- NOTE | 2017-02-16 00:20 | NUR ---
pt in bed family at bedside. denies needs at this time. will cont to monitor.
--- NOTE | 2017-02-16 02:21 | NUR ---
RN NOTE: PT RESTING IN HIGH MCKINNEY'S POSITION WITH EYES CLOSED AND EASY RESPIRATIONS. IV IN LEFT WRIST PATENT WITH NS INFUSING AT KVO. WILL CONTINUE TO MONITOR FOR NEEDS. CALL LIGHT WITHIN REACH.
--- NOTE | 2017-02-16 04:12 | NUR ---
PT IN BED RESTING. WILL CONTINUE TO MONITOR.
[2017-02-16 05:22] LABS: BASOPHILS 0.2 % (0-2); HEMATOCRIT 31.5 % (36.0-48.0); HEMOGLOBIN 11.1 g/dL (12-16); IMMATURE GRANULOCYTES 0.5 % (0-5); LYMPHOCYTES 20.6 % (15-50); MCH 36.8 pg (26.0-34.0); MCHC 35.2 g/dL (31.0-37.0); MCV 104.3 fL (80.0-100.0); MEAN PLATELET VOLUME 10.5 fL (7.4-10.4); MONOCYTES 19.3 % (2-11); NEUTROPHILS 57.4 % (40-80); PLATELET COUNT 123 10x3/uL (130-400); RBC 3.02 10x6/uL (4.00-5.40); RDW 15.8 % (11.5-14.5); WBC 5.5 10x3/uL (4.8-10.8)
[2017-02-16 05:49] LABS: ALBUMIN 2.4 g/dL (3.4-5.0); ANION GAP 9.6 mmol/L (8-16); BILIRUBIN - TOTAL 2.16 mg/dL (0.2-1.3); CALCIUM 8.4 mg/dL (8.5-10.1); CARBON DIOXIDE 32.7 mmol/L (21.0-32.0); POTASSIUM - SERUM 4.3 mmol/L (3.5-5.1); PROTEIN - SERUM 5.9 g/dL (6.4-8.2)
[2017-02-16 09:39] VITALS: BP 137/48
--- NOTE | 2017-02-16 10:18 | NUR ---
RESTING IN BED AFTER AMBULATION WITH PT IN [place]. STILL REPORTS SOME NAUSEA. WILL CONTINUE TO MONITOR. LUNGS ARE CLEAR BUT DIMINISHED THROUGHOUT. NO COUGH NOTED.
[2017-02-16 13:00] VITALS: BP 139/81
[2017-02-16 16:07] VITALS: BP 115/55
--- NOTE | 2017-02-16 19:16 | NUR ---
OT NOTE: PT COMPLETED BED MOB WITH I .PT COMPLETED DYNAMIC SITTING BALANCE WITH I. THANK YOU, MIGUEL NAVARRETE/Elif
[2017-02-16 20:00] VITALS: BP 119/57
[2017-02-17 04:00] VITALS: BP 125/59
[2017-02-17 06:44] LABS: ALBUMIN 2.4 g/dL (3.4-5.0); ANION GAP 7.6 mmol/L (8-16); BILIRUBIN - TOTAL 2.19 mg/dL (0.2-1.3); C-REACTIVE PROTEIN 0.3 mg/dL (0.0-0.9); CALCIUM 8.5 mg/dL (8.5-10.1); CARBON DIOXIDE 34.3 mmol/L (21.0-32.0); POTASSIUM - SERUM 3.9 mmol/L (3.5-5.1); PROTEIN - SERUM 5.7 g/dL (6.4-8.2)
[2017-02-17 06:50] LABS: HEMATOCRIT 30.6 % (36.0-48.0); HEMOGLOBIN 10.5 g/dL (12-16); MCHC 34.3 g/dL (31.0-37.0); MCV 104.8 fL (80.0-100.0); MEAN PLATELET VOLUME 10.1 fL (7.4-10.4); PLATELET COUNT 117 10x3/uL (130-400); RBC 2.92 10x6/uL (4.00-5.40); RDW 16.1 % (11.5-14.5); WBC 4.9 10x3/uL (4.8-10.8)
[2017-02-17 07:28] LABS: EOSINOPHILS 3 % (0-7); LYMPHOCYTES 23 % (15-50); MONOCYTES 16 % (2-11); NEUTROPHILS 53 % (40-80); PLATELET ESTIMATE DECREASED
[2017-02-17 08:30] VITALS: BP 116/62
--- NOTE | 2017-02-17 08:30 | NUR ---
C/O CHEST PAIN AT THIS TIME. VSS. COLOR AND SKIN WNL. REPORTS HAVING A COUGHING SPELL JUST PRIOR TO PAIN STARTING UP. AMBULATED TO BR WITH SBS. VOIDED WITHOUT DIFFICULTY. WILL MONITOR.
[2017-02-17 12:31] VITALS: BP 90/40
[2017-02-17 20:00] VITALS: BP 105/47
--- NOTE | 2017-02-18 01:14 | NUR ---
CHANGED BED LINEN WHILE PT TOOK SHOWER AT BEGINNING OF NIGHT. PT RESTING QUIETLY NOW, EYES CLOSED. ASSESSMENT COMPLETE PER FLOW-SHEET. WILL CONTINUE TO MONITOR. BED LOW. CALL LIGHT IN REACH.
[2017-02-18 04:00] VITALS: BP 111/54
[2017-02-18 05:32] LABS: BASOPHILS 0.2 % (0-2); EOSINOPHILS 2.7 % (0-7); HEMATOCRIT 30.7 % (36.0-48.0); HEMOGLOBIN 10.7 g/dL (12-16); IMMATURE GRANULOCYTES 0.6 % (0-5); LYMPHOCYTES 27.7 % (15-50); MCH 36.4 pg (26.0-34.0); MCHC 34.9 g/dL (31.0-37.0); MCV 104.4 fL (80.0-100.0); MEAN PLATELET VOLUME 10.1 fL (7.4-10.4); MONOCYTES 20.2 % (2-11); NEUTROPHILS 48.6 % (40-80); PLATELET COUNT 132 10x3/uL (130-400); RBC 2.94 10x6/uL (4.00-5.40); RDW 16.2 % (11.5-14.5); WBC 4.8 10x3/uL (4.8-10.8)
[2017-02-18 05:49] LABS: ALBUMIN 2.3 g/dL (3.4-5.0); BILIRUBIN - TOTAL 1.9 mg/dL (0.2-1.3); CALCIUM 8.1 mg/dL (8.5-10.1); CARBON DIOXIDE 35.1 mmol/L (21.0-32.0); POTASSIUM - SERUM 4.1 mmol/L (3.5-5.1); PROTEIN - SERUM 5.4 g/dL (6.4-8.2)
--- NOTE | 2017-02-18 08:00 | NUR ---
PT AM MEDS ADMINISTERED. PT DENIES NEEDS AT THIS TIME. WCTM.
[2017-02-18 08:45] VITALS: BP 104/41
--- NOTE | 2017-02-18 11:31 | NUR ---
PT REQ AND REC'D PRN PAIN MEDICATION. PT C/O OF STOMACH CRAMPS 11/25. WCTM.
[2017-02-18 12:49] VITALS: BP 120/64
[2017-02-18] MEDS ORDERED: TESSALON PERLE100 MG PO (15:07)
[2017-02-18] MEDS ORDERED: LEVAQUIN750 MG PO (15:08)
[2017-02-18] MEDS ORDERED: FLORAJEN3 CAPS460 MG PO (15:08)
[2017-02-18] MEDS ORDERED: MUCINEX DM ER1 EAC1 PO (15:08)
--- NOTE | 2017-02-18 15:11 | NUR ---
PT IV TO LEFT WRIST INFILTRATED. PT HAD ONE DOSE OF ROCEPHIN TO GIVE. PT REQ NEW IV TO BE STARTED EVEN WITH DC ORDERS SO THAT SHE MAY RECEIVE ROCEPHIN DOSE. PT NEW IV IN RT HAND. ABX GIVEN. IV S'LOCKED.
--- NOTE | 2017-02-18 18:16 | NUR ---
OT NOTE: PT COMPLETED DYNAMIC BALANCE IN SITTING AND STANDING WITH I. THANK YOU, MIGUEL NAVARRETE/Elif
== END 2017-02-18 18:44 | disposition home health service (06) | DRG 441 ==
LOC: D.ER 15:02 → D.MS 16:26
PROVIDERS: Emergency Medicine; Family Medicine; ADMIT Family Medicine Adult Medicine
DX: K72.90 Hepatic failure, unspecified without coma (principal); J11.00 Influenza due to unidentified influenza virus with unspecified type of pneumonia; J90 Pleural effusion, not elsewhere classified; D61.818 Other pancytopenia; I50.30 Unspecified diastolic (congestive) heart failure; R18.8 Other ascites; K74.60 Unspecified cirrhosis of liver; K59.00 Constipation, unspecified; K73.9 Chronic hepatitis, unspecified; E87.6 Hypokalemia

== ENCOUNTER → 2017-04-12 16:41 | Outpatient (CLI) | payer MEDICAID ==
[2017-02-11 17:16] VITALS: BMI 37.8
[~2017-04-12 16:41] MED LIST changes: +FLORAJEN3 CAPS460 MG PO; +MUCINEX DM ER1 EAC1 PO
== END | disposition home or self-care (01) ==
LOC: D.CT 16:00
DX: R47.81 Slurred speech (principal)

== ENCOUNTER → 2017-09-09 09:24 | Outpatient (CLI) | payer MEDICAID ==
[2017-02-11 17:16] VITALS: BMI 37.8
== END | disposition home or self-care (01) ==
LOC: D.MRI 09:24
DX: M54.16 Radiculopathy, lumbar region (principal)

== ENCOUNTER 2018-06-18 16:51 | Inpatient (IN) | payer MEDICAID ==
[~2018-06-18] VITALS: Ht 157.5 cm; Wt 75.9 kg
--- NOTE | ~2018-06-18 | OP ---
PATIENT NAME: BRENDA CLANCY MEDICAL RECORD: [id number] :59 LOCATION:D.[id number] ADMISSION DATE:06/18/18 SURGEON: MAHENDRA NUGENT MD DATE OF OPERATION: 06/19/2018 PREOPERATIVE DIAGNOSIS: Proximal humerus fracture of the left humerus -- surgical neck. POSTOPERATIVE DIAGNOSIS: Proximal humerus fracture of the left humerus -- surgical neck. PROCEDURE: Intramedullary rodding of proximal humerus fracture. SURGEON: Mahendra Nugent MD SUSTAINABILITY COMMUNICATOR: José Miguel. INTRAOPERATIVE COMPLICATIONS: None. SUMMARY OF PATHOLOGIC FINDINGS: Consistent with the preoperative diagnosis, the patient had a transverse fracture of the proximal humerus with no effect on the greater and lesser tuberosities and no proximal migration. It was felt that IM rodding was stable for this patient with proximal humeral fixation. OPERATIVE SUMMARY IN DETAIL: After obtaining the appropriate preoperative orthopedic surgery consent as well as anesthetic consultation, evaluation and clearance, the patient was brought to the operating room and placed on the operating table in supine position. After adequate general laryngeal mask airway anesthetic was administered, the patient was placed in beach chair position. All pressure points were well padded. She was held firmly to the operating table using the vacuum pack suction system. The patient's left upper extremity and shoulder were then prepped and draped in routine sterile fashion. The arm was held in Trimano arm holding device. Fluoroscopy was brought in to be sure that we had excellent and adequate imaging and we did in both AP and lateral planes. A small incision was made on the anterolateral aspect of the shoulder taken down to the deltoid, greater tuberosity insertion site was noted. Small guide hole was created with the guide pin. This was followed by the proximal reaming device. The 8 x 150 proximal humeral nail guided was then slipped into place with good fixation fit and fill. Serial and sequential fixation was then done with a combination of oblique as well as transverse locking screws. Having completed this, multiple views were taken in both AP and lateral to ensure that no screws had penetrated the articular surface. Final radiographs were submitted for radiologist review. Wounds were closed with 2-0 Vicryl and skin jhoana. Sterile dressings were applied. The patient was awakened and taken to the recovery room in stable condition. All final needle and sponge counts were correct. TRANSINT:[id number] Voice Confirmation ID: [id number] DOCUMENT ID: [id number] OPERATIVE REPORT [id number] BRENDA CLANCY MD, MAHENDRA DAO CC: [id number] DICTATION DATE: 06/23/18 1019 LICENSING REPRESENTATIVE: 06/23/18 1222 DIS IN 06/21/18 [place] [id number] [place] [id number]
--- NOTE | ~2018-06-18 | CN ---
PATIENT NAME:BRENDA CLANCY MEDICAL RECORD: [id number] : 59 LOCATION:D.[facility] ADMIT DATE: 06/18/18 ACCOUNT: [id number] CONSULTING PHYSICIAN: DACIA ONEILL MD REFERRING PHYSICIAN: MAHENDRA NUGENT MD DATE OF CONSULTATION: 06/19/2018 CARDIOLOGY CONSULTATION DIAGNOSES: 1. Preoperative evaluation, orthopedic surgery. 2. Aortic stenosis. 3. Chronic obstructive pulmonary disease. 4. Smoking history. 5. Hypertension. HISTORY OF PRESENT ILLNESS: Mrs. Clancy has no history of ischemic heart disease, she has a history of aortic stenosis on an echo from 2 years ago that was mild. She has had no chest pain, no chest discomfort, no shortness of breath, no symptomatology from the aortic stenosis. It has not been reevaluated over the past years. Her EKG is with no significant ST-T abnormalities. PHYSICAL EXAMINATION: GENERAL APPEARANCE: Well-nourished, well-developed, appears stated age. Level of distress, comfortable. PSYCHIATRIC: Mental status, alert, normal affect. Orientation, oriented to time, place and person. EYES: Lids and conjunctiva, noninjected. No discharge, no pallor. ENT: Lips, teeth, gums, normal dentition. Oropharynx, no cyanosis, no pallor. NECK: Carotid arteries, bilateral normal upstroke, no bruits, no thrills. JUGULAR VEINS: No jugular venous pressure or distention. CERVICAL LYMPH NODES: Nontender, nonenlarged. THYROID: Not enlarged. Nontender. No nodules. LUNGS: Respiratory effort, unlabored. CHEST: Normal curvature. No thoracic deformity. No chest wall tenderness. Percussion, resonant. Auscultation, clear. No wheezes, no rales, no rhonchi. CARDIOVASCULAR: Precordial exam, nondisplaced. No heaves or pericardial thrills. Rate and rhythm, regular. Heart sounds, normal S1, normal S2. No S3, no gallop, no rub. Systolic murmur, not heard. Diastolic murmur, not heard. EXTREMITIES: No cyanosis, no edema. Peripheral pulses, full and equal in all extremities, except as noted. No bruits appreciated. ABDOMEN: Soft, nondistended. Normal aorta. No bruit. Nontender. No masses. Liver, nontender, no hepatomegaly. Spleen, nontender, no splenomegaly. MUSCULOSKELETAL: No joint tenderness. No joint swelling. No erythema. NEUROLOGICAL: Normal gait, normal strength, normal tone. SKIN: Warm and dry. OVERALL IMPRESSION: Aortic stenosis, mild, asymptomatic. At this time, proceed with surgery at low cardiac risk. We will get an echocardiogram in the postop phase to reevaluate the aortic stenosis. No other cardiac workup or treatment is necessary. TRANSINT:[id number] Voice Confirmation ID: [id number] DOCUMENT ID: [id number] CONSULT REPORT [id number] BRENDA CLANCY JEFFREY MD CC: [id number] DICTATION DATE: 06/19/18817 CUSTOMER INSIGHT ANALYST: 06/19/18914 ADM IN [facility] [address] [place] [place] [id number]
--- NOTE | 2018-06-18 17:00 | NUR ---
REC'D TO ROOM 2238 AWAKE AND ALERT. RESP EVEN AND UNLABORED WITH NO DISTRES NOTED.CAN EXPRESS NEEDS AND WANTS. NO C/O NOTD OR VOICED. ASSESSMENT COMPLETED. C/L IN REACH AT BEDSIDE
[2018-06-18 18:52] VITALS: BP 116/50; Ht 157.5 cm; Wt 75.9 kg
[2018-06-18 19:08] LABS: BASOPHILS 0.8 % (0-2); EOSINOPHILS 1.9 % (0-7); HEMATOCRIT 28.6 % (36.0-48.0); HEMOGLOBIN 9.7 g/dL (12-16); LYMPHOCYTES 34.4 % (15-50); MCH 33.1 pg (26.0-34.0); MCHC 33.9 g/dL (31.0-37.0); MCV 97.6 fL (80.0-100.0); MEAN PLATELET VOLUME 9.8 fL (7.4-10.4); MONOCYTES 12.8 % (2-11); NEUTROPHILS 50.1 % (40-80); PLATELET COUNT 115 10x3/uL (130-400); RBC 2.93 10x6/uL (4.00-5.40); RDW 15.5 % (11.5-14.5); WBC 3.7 10x3/uL (4.8-10.8)
[2018-06-18] MEDS ORDERED: OXYCONTIN10 MG PO (19:10)
[2018-06-18 19:12] LABS: ANION GAP 12.1 mmol/L (8-16); CALCIUM 8.1 mg/dL (8.5-10.1); CARBON DIOXIDE 25.8 mmol/L (21.0-32.0); CREATININE - SERUM 0.9 mg/dL (0.6-1.3); POTASSIUM - SERUM 3.9 mmol/L (3.5-5.1)
[2018-06-18 20:00] VITALS: BP 111/39
[2018-06-19] VITALS (10 sets, daily range): BP systolic 111–176; BP diastolic 49–85
--- NOTE | 2018-06-19 05:20 | NUR ---
I AGREE WITH MAINTENANCE MECHANIC ASSESSMENT.
[2018-06-19 06:45] LABS: HEMATOCRIT 24.5 % (36.0-48.0); HEMOGLOBIN 8.4 g/dL (12-16); MCH 33.5 pg (26.0-34.0); MCHC 34.3 g/dL (31.0-37.0); MCV 97.6 fL (80.0-100.0); MEAN PLATELET VOLUME 10.5 fL (7.4-10.4); PLATELET COUNT 95 10x3/uL (130-400); RBC 2.51 10x6/uL (4.00-5.40); RDW 15.6 % (11.5-14.5); WBC 2.8 10x3/uL (4.8-10.8)
[2018-06-19 07:07] LABS: CALC OSMOLALITY 285 mosm/kg (275-300); CALCIUM 7.9 mg/dL (8.5-10.1); CARBON DIOXIDE 27.1 mmol/L (21.0-32.0); CHLORIDE - SERUM 109 mmol/L (98-107); CREATININE - SERUM 0.8 mg/dL (0.6-1.3); GLUCOSE 114 mg/dL (74-106); POTASSIUM - SERUM 4.2 mmol/L (3.5-5.1); SODIUM 141 mmol/L (136-145); UREA NITROGEN 24 mg/dL (7-18); eGFR NON AFRICAN AMERICAN 77 mL/min (90-120)
--- NOTE | 2018-06-19 07:15 | NUR ---
REC'D IN BED AWAKE AND ALERT. RESP EVEN AND UNLABORED WITH NO WITH DISTRESS NOTED. CAN EXPRESS NEEDS AND WANTS. ASSESSMENT COMPLETED. HAS SLING IN USE. C/L IN REACH AT BEDSIDE
[2018-06-19 08:04] LABS: EOSINOPHILS 2 % (0-7); LYMPHOCYTES 36 % (15-50); MONOCYTES 8 % (2-11); NEUTROPHILS 52 % (40-80); PLATELET ESTIMATE DECREASED
[2018-06-19 09:54] LABS: APPEARANCE CLEAR (CLEAR); BILIRUBIN NEGATIVE (NEGATIVE); COLOR YELLOW (YELLOW); GLUCOSE NEGATIVE (NEGATIVE); KETONE NEGATIVE (NEGATIVE); NITRITE NEGATIVE (NEGATIVE); PROTEIN NEGATIVE (NEGATIVE)
--- NOTE | 2018-06-19 10:55 | NUR ---
PRBC STARTED AT THIS TIME VIA RN. NO C/O NOTED OR VOICED. WILL CONITNUE TO OBSERVE FOR NEEDS. C/L IN REACH AT BEDSIDE.
--- NOTE | 2018-06-19 18:13 | NUR ---
I have reviewed this patient and I concur with the Shift Assessment completed by the Licensed Practical Nurse today this shift.
--- NOTE | 2018-06-19 19:15 | NUR ---
. RECIEVED BACK TO ROOM FROM RECOVERY, AROUSES EASILY, LEFT ARM SLING IN PLACE WITH ICE PACK TO SHOULDER, ABLE TO MOVE FINGERS CAPILLARY REFILL LESS THAN 3 SEC, NO SWELLING NOTED TO HAND. AT BEDSIDE CALL LIGHT IN REACH
[2018-06-20] VITALS (9 sets, daily range): BP systolic 131–171; BP diastolic 49–82
--- NOTE | 2018-06-20 07:47 | NUR ---
AWAKE AND ALERT, ORIENTED X4, ON ROOM AIR, IV TO RIGHT HAND, PATENT, SLING TO LEFT SHOULDER, DILAUDID ALLERGY SPECIALIST PRESENT, SCD'S, DENIES ANY CURRENT NEEDS OR DISCOMFORTS, BED LOWERED AND LOCKED, CALL LIGHT WITHIN REACH. CPOC
--- NOTE | 2018-06-20 09:39 | NUR ---
SPOKE WITH TOSHIA FROM LAB IN REGARDS TO MORNING BLOOD DRAW, 3 ATTEMPTS TO DRAW BLOOD HAVE BEEN UNSUCCESFUL. WILL CONTINUE TO TRY AND OBTAIN.
--- NOTE | 2018-06-20 11:19 | MORECARE ---
CASE MANAGEMENT DISCHARGE SUMMARY PATIENT: BRENDA CLANCY RITU UNIT: [id number] ADM DATE: 06/18/18 AGE: 63 : 59 SEX: F ROOM/BED: D.2238 AUTHOR: ML KNAPP PHYSICIAN: REFERRING PHYSICIAN: MAHENDRA NUGENT MD DATE OF SERVICE: 06/20/18 Discharge Plan Patient Name: BRENDA CLANCY [facility] [facility] 1955 Planned Disposition: Home Anticipated Discharge Date: Discharge Date: Expected LOS: Initial Reviewer: [email or web address] Initial Review Date: 06/20/2018 Generated: 06/20/18 12:19 pm External Providers [facility] Next Contact Date: Service Request Date: Service Type: Resolution: Reviewer: Comments: Patient Name: BRENDA CLANCY Page [phone] at 1119 All edits/amendments must be made on the electronic document DICTATION DATE: 06/20/18 1118 DIRECTOR SEMICONDUCTOR: DM 06/20/18 1118 RPT#: [id number] [place] DATE: STATUS: ADM IN [place] [address] [place] [address] END OF REPORT
--- NOTE | 2018-06-20 11:26 | MORECARE ---
CASE MANAGEMENT DISCHARGE SUMMARY PATIENT: BRENDA CLANCY RITU UNIT: [id number] ADM DATE: 06/18/18 AGE: 63 : 59 SEX: F ROOM/BED: D.2238 AUTHOR: ML KNAPP PHYSICIAN: REFERRING PHYSICIAN: MAHENDRA NUGENT MD DATE OF SERVICE: 06/20/18 Discharge Plan Patient Name: BRENDA CLANCY Facility: [facility]:[place] : 1955 Planned Disposition: Home Anticipated Discharge Date: Discharge Date: Expected LOS: Initial Reviewer: [email or web address] Initial Review Date: 06/20/2018 Generated: 06/20/18 12:26 pm DCPIA - Discharge Planning Initial Assessment Updated by [email or web address]: Laurel Escobar on 06/20/18 11:22 am * Is the patient Alert and Oriented? Yes * How many steps to enter\exit or inside your home? 2/0 * PCP Dr. Weeks * Pharmacy [facility] * Preadmission Environment Home with Family * ADLs Partial Dependent * Partial ADLs (Assistance needed) Ambulation Bathing Medication Management * Equipment Hospital Bed Other Power Chair or Electric Scooter Shower Chair * Other Equipment Sling * List name and contact numbers for known caregivers / representatives who currently or will assist patient after discharge: Jhonny watt - [address] - [place] - [phone] W [phone] * Verbal permission to speak to the caregivers and representatives has been obtained from the patient. Yes * Community resources currently utilized Private Duty Care * Please name any agencies selected above. [facility] * Additional services required to return to the preadmission environment? No * Can the patient safely return to the preadmission environment? Yes * Has this patient been hospitalized within the prior 30 days at any hospital? No Last DP export: 06/20/18 10:19 am Patient Name: BRENDA CLANCY Page [phone] at 1126 All edits/amendments must be made on the electronic document DICTATION DATE: 06/20/18 1125 MISCELLANEOUS MACHINE OPERATOR: KIM 06/20/18 112 RPT#: [id number] DC DATE: STATUS: ADM IN [facility] [address] [place] [address] END OF REPORT
--- NOTE | 2018-06-20 11:35 | MORECARE ---
CASE MANAGEMENT DISCHARGE SUMMARY PATIENT: BRENDA CLANCY RITU UNIT: [id number] ADM DATE: 06/18/18 AGE: 63 : 59 SEX: F ROOM/BED: D.7967 AUTHOR: ML KNAPP PHYSICIAN: REFERRING PHYSICIAN: MAHENDRA NUGENT MD DATE OF SERVICE: 06/20/18 Discharge Plan Patient Name: BRENDA CLANCY Facility: [facility]:[place] : 1955 Planned Disposition: Home Anticipated Discharge Date: Discharge Date: Expected LOS: Initial Reviewer: [email or web address] Initial Review Date: 06/20/2018 Generated: 06/20/18 12:34 pm Comments DCP- Discharge Planning Updated by [email or web address]: Laurel Escobar on 06/20/18 10:[address] Patient Name: BRENDA CLANCY Admission Status: Urgent Accout number: [id number] Admission Date: 06-18-2018 : 1955 Admission Diagnosis: Attending: MAHENDRA NUGENT Current LOS: 2 Anticipated DC Date: Planned Disposition: Home Primary Insurance: MEDICAID [place] Discharge Planning Comments: CM met with patient to complete initial dc planning assessment. CM educated patient on the CM role and verbal consent given by patient to complete assessment. Patient lives at home with her boyfriend (Jhonny). At discharge patient plans to return and feels this is a safe discharge. CM discussed availability of home health, rehab services, and medical equipment. Patient states her discharge plan is to return home with her boyfriend. She has [facility] that come in 5 days a week and assist with bathing, house cleaning, etc. States her DIL sets up her medications. States usually her DIL drives her to her appointments. Advanced directive packet given to patient per request. She asks for a BSC if it can be paid by Medicaid. I called [facility] and spoke to Caridad, she will be eligible for one in August of 2019. I informed patient and she states she will have her DIL look in storage for her old BSC. Declines home health services. CM will continue to follow and will assist as needed with dc plans/needs. Wraparound Facilitator: Laurel Escobar DCPIA - Discharge Planning Initial Assessment Updated by [email or web address]: Laurel Escobar on 06/20/18 11:22 am * Is the patient Alert and Oriented? Yes * How many steps to enter\exit or inside your home? 2/0 * PCP Dr. Weeks * Pharmacy [facility] * Preadmission Environment Home with Family * ADLs Partial Dependent * Partial ADLs (Assistance needed) Ambulation Bathing Medication Management * Equipment Hospital Bed Other Power Chair or Electric Scooter Shower Chair * Other Equipment Sling * List name and contact numbers for known caregivers / representatives who currently or will assist patient after discharge: Jhonny Christopher Karen quilesmahnaz - [address] - D[place] - [phone] W [phone] * Verbal permission to speak to the caregivers and representatives has been obtained from the patient. Yes * Community resources currently utilized Private Duty Care * Please name any agencies selected above. [facility] * Additional services required to return to the preadmission environment? No * Can the patient safely return to the preadmission environment? Yes * Has this patient been hospitalized within the prior 30 days at any hospital? No Last DP export: 06/20/18 10:26 am Patient Name: BRENDA CLANCY Page [phone] at 1135 All edits/amendments must be made on the electronic document DICTATION DATE: 06/20/181133 ENSEMBLE MEMBER: KIM 06/20/181133 RPT#: [id number] DC DATE: STATUS: ADM IN [facility] [address] [place] [address] END OF REPORT
[2018-06-20 12:06] LABS: BASOPHILS 0 % (0-2); EOSINOPHILS 0 % (0-7); HEMATOCRIT 28.5 % (36.0-48.0); HEMOGLOBIN 9.7 g/dL (12-16); IMMATURE GRANULOCYTES 0.2 % (0-5); LYMPHOCYTES 11.4 % (15-50); MCH 32.1 pg (26.0-34.0); MEAN PLATELET VOLUME 9.7 fL (7.4-10.4); MONOCYTES 11.9 % (2-11); NEUTROPHILS 76.5 % (40-80); PLATELET COUNT 99 10x3/uL (130-400); RDW 16.3 % (11.5-14.5)
[2018-06-20 12:08] LABS: MCV 94.4 fL (80.0-100.0); RBC 3.02 10x6/uL (4.00-5.40)
[2018-06-20 12:09] LABS: ANION GAP 8.4 mmol/L (8-16); CARBON DIOXIDE 27.8 mmol/L (21.0-32.0); CREATININE - SERUM 0.9 mg/dL (0.6-1.3); POTASSIUM - SERUM 4.2 mmol/L (3.5-5.1)
--- NOTE | 2018-06-20 19:13 | NUR ---
I have reviewed this patient and I concur with the Shift Assessment completed by the Licensed Practical Nurse today this shift.
--- NOTE | 2018-06-20 20:30 | NUR ---
RECEIVED REPORT, ASSUMED CARE, A&O, FAMILY AT BEDSIDE, ICE APPLIED TO LEFT ARM AND ELEVATED, IV ZOFRAN GIVEN FOR NAUSEA, CALL LIGHT IN REACH, BED LOWEST POSITION, WILL CONTINUE POC
[2018-06-21] VITALS: BP 140/65
[2018-06-21 03:00] VITALS: BP 99/36
--- NOTE | 2018-06-21 04:33 | NUR ---
I have reviewed this patient and I concur with the Shift Assessment completed by the Licensed Practical Nurse today this shift.
[2018-06-21 06:38] LABS: BASOPHILS 0.3 % (0-2); EOSINOPHILS 1.2 % (0-7); HEMATOCRIT 26.3 % (36.0-48.0); HEMOGLOBIN 8.9 g/dL (12-16); IMMATURE GRANULOCYTES 0.2 % (0-5); LYMPHOCYTES 20.6 % (15-50); MCH 32.6 pg (26.0-34.0); MCHC 33.8 g/dL (31.0-37.0); MCV 96.3 fL (80.0-100.0); MEAN PLATELET VOLUME 9.3 fL (7.4-10.4); MONOCYTES 13.6 % (2-11); NEUTROPHILS 64.1 % (40-80); PLATELET COUNT 87 10x3/uL (130-400); RBC 2.73 10x6/uL (4.00-5.40); RDW 16.7 % (11.5-14.5)
[2018-06-21 07:06] LABS: WBC 5.7 10x3/uL (4.8-10.8)
[2018-06-21 07:13] LABS: ANION GAP 8.7 mmol/L (8-16); CALCIUM 7.5 mg/dL (8.5-10.1); CARBON DIOXIDE 29.8 mmol/L (21.0-32.0)
[2018-06-21 07:15] LABS: POTASSIUM - SERUM 3.5 mmol/L (3.5-5.1)
[2018-06-21 09:07] VITALS: BP 117/68
--- NOTE | 2018-06-21 10:45 | NUR ---
I have reviewed this patient and I concur with the Shift Assessment completed by the Licensed Practical Nurse today this shift.
[2018-06-21] MEDS ORDERED: DILAUDID4 MG PO (10:48)
--- NOTE | 2018-06-21 14:43 | NUR ---
DISCHARGE INSTRUCTIONS GIVEN. VERBALIZES UNDERSTANDING. DENIES ANY QUESTIONS OR CONCERNS AT CURRENT TIME. TRANSPORTED VIA WHEELCHAIR OFF UNIT.
--- NOTE | 2018-06-23 16:56 | MORECARE ---
CASE MANAGEMENT DISCHARGE SUMMARY PATIENT: BRENDA CLANCY RITU UNIT: [id number] ADM DATE: 06/18/18 AGE: 63 : 59 SEX: F ROOM/BED: D.0168 AUTHOR: ML KNAPP PHYSICIAN: REFERRING PHYSICIAN: MAHENDRA NUGENT MD DATE OF SERVICE: 06/23/18 Discharge Plan Patient Name: BRENDA CLANCY Facility: [facility]:[place] : 1955 Planned Disposition: Home Anticipated Discharge Date: Discharge Date: 06/21/2018 Expected LOS: 0 Initial Reviewer: [email or web address] Initial Review Date: 06/20/2018 Generated: 06/23/18 5:55 pm Comments DCP- Discharge Planning Updated by [email or web address]: Laurel Escobar on 06/20/18 10:[address] Patient Name: BRENDA CLANCY Admission Status: Urgent Accout number: [id number] Admission Date: 06-18-2018 : 1955 Admission Diagnosis: Attending: MAHENDRA NUGENT Current LOS: 2 Anticipated DC Date: Planned Disposition: Home Primary Insurance: MEDICAID [place] Discharge Planning Comments: CM met with patient to complete initial dc planning assessment. CM educated patient on the CM role and verbal consent given by patient to complete assessment. Patient lives at home with her boyfriend (Jhonny). At discharge patient plans to return and feels this is a safe discharge. CM discussed availability of home health, rehab services, and medical equipment. Patient states her discharge plan is to return home with her boyfriend. She has [employer] that come in 5 days a week and assist with bathing, house cleaning, etc. States her DIL sets up her medications. States usually her DIL drives her to her appointments. Advanced directive packet given to patient per request. She asks for a BSC if it can be paid by Medicaid. I called [facility] and spoke to Caridad, she will be eligible for one in August of 2019. I informed patient and she states she will have her DIL look in storage for her old BSC. Declines home health services. CM will continue to follow and will assist as needed with dc plans/needs. Firefighter: Laurel Escobar DCPIA - Discharge Planning Initial Assessment Updated by [id number]: Laurel Escobar on 06/20/18 11:22 am * Is the patient Alert and Oriented? Yes * How many steps to enter\exit or inside your home? 2/0 * PCP Dr. Weeks * Pharmacy [facility] * Preadmission Environment Home with Family * ADLs Partial Dependent * Partial ADLs (Assistance needed) Ambulation Bathing Medication Management * Equipment Hospital Bed Other Power Chair or Electric Scooter Shower Chair * Other Equipment Sling * List name and contact numbers for known caregivers / representatives who currently or will assist patient after discharge: Jhonny watt - [address] - [place] - [phone] W [phone] * Verbal permission to speak to the caregivers and representatives has been obtained from the patient. Yes * Community resources currently utilized Private Duty Care * Please name any agencies selected above. [facility] * Additional services required to return to the preadmission environment? No * Can the patient safely return to the preadmission environment? Yes * Has this patient been hospitalized within the prior 30 days at any hospital? No Coverage Notice Reviewer: [id number] - Laurel Escobar Notice Issued Date-Time: 06/20/2018 11:35 Notice Type: Patient Choice Letter Notice Delivered To: Patient Relationship to Patient: Self Chemist Steroids Name: Delivery Method: HAND - Hand Delivered Marlyn Days: Prior Verbal Notification: Recipient Understood Notice: Yes Recipient Signature: Yes Med Rec Note Co-signed by Attending: Coverage Notice Comment: KARYNA for Liliana Guzman DP export: 06/20/18 10:35 am Patient Name: BRENDA CLANCY Page [phone] at 1656 All edits/amendments must be made on the electronic document DICTATION DATE: 06/23/181654 FRONT END JAVA DEVELOPER: KIM 06/23/181654 RPT#: [id number] DC DATE:06/21/18 STATUS: DIS IN [facility] [address] [place] [address] END OF REPORT
== END 2018-06-21 14:45 | disposition home or self-care (01) | DRG 493 ==
LOC: D.MS 16:51
PROVIDERS: ADMIT Orthopaedic Surgery; ATTEND Orthopaedic Surgery
PROC: 0PSG06Z Reposition Left Humeral Shaft with Intramedullary Internal Fixation Device, Open Approach (ICD-10-PCS; principal; 2018-06-19 14:45)
DX: S42.209A Unspecified fracture of upper end of unspecified humerus, initial encounter for closed fracture (principal); D62 Acute posthemorrhagic anemia; I11.0 Hypertensive heart disease with heart failure; I50.9 Heart failure, unspecified; I25.10 Atherosclerotic heart disease of native coronary artery without angina pectoris

== ENCOUNTER 2018-08-11 16:13 | Inpatient (IN) | payer MEDICAID ==
[~2018-08-11] VITALS: Ht 157.5 cm; Wt 72.6 kg
[~2018-08-11 16:13] MED LIST changes: +DILAUDID4 MG PO
[2018-08-11 16:53] LABS: HEMATOCRIT 28.1 % (36.0-48.0); HEMOGLOBIN 9.4 g/dL (12-16); MCH 33.3 pg (26.0-34.0); MCHC 33.5 g/dL (31.0-37.0); MCV 99.6 fL (80.0-100.0); MEAN PLATELET VOLUME 9.2 fL (7.4-10.4); PLATELET COUNT 76 10x3/uL (130-400); RBC 2.82 10x6/uL (4.00-5.40); RDW 16.9 % (11.5-14.5); WBC 2.5 10x3/uL (4.8-10.8)
[2018-08-11 16:57] LABS: APPEARANCE HAZY (CLEAR); BILIRUBIN NEGATIVE (NEGATIVE); COLOR YELLOW (YELLOW); GLUCOSE NEGATIVE (NEGATIVE); KETONE NEGATIVE (NEGATIVE); NITRITE NEGATIVE (NEGATIVE); PROTEIN NEGATIVE (NEGATIVE); SPECIFIC GRAVITY 1.025 (1.005-1.020); UROBILINOGEN NORMAL (NORMAL)
--- NOTE | 2018-08-11 17:00 | NUR ---
NOTIFIED BY LAB OF ELEVATED AMMONIA 159. TREATING PROVIDER NOTIFIED.
[2018-08-11 17:02] LABS: APTT 36.8 SECONDS (22.8-39.4); INR 1.57 (0.85-1.17); PROTIME 18.2 SECONDS (11.6-15.0)
[2018-08-11 17:02] LABS: UDS - AMPHET NEGATIVE QUAL (NEGATIVE); UDS - BARB NEGATIVE QUAL (NEGATIVE); UDS - BENZO NEGATIVE QUAL (NEGATIVE); UDS - COCAINE NEGATIVE QUAL (NEGATIVE); UDS - OPIATE NEGATIVE QUAL (NEGATIVE); UDS - PCP NEGATIVE QUAL (NEGATIVE); UDS - THC NEGATIVE QUAL (NEGATIVE)
[2018-08-11 17:03] LABS: ALBUMIN 2.3 g/dL (3.4-5.0); ALKALINE PHOSPHATASE 222 U/L (46-116); ALT (SGPT) 21 U/L (10-68); CALC OSMOLALITY 290 mosm/kg (275-300); CALCIUM 8.3 mg/dL (8.5-10.1); CARBON DIOXIDE 24.1 mmol/L (21.0-32.0); CHLORIDE - SERUM 112 mmol/L (98-107); CREATININE - SERUM 0.8 mg/dL (0.6-1.3); GLUCOSE 120 mg/dL (74-106); POTASSIUM - SERUM 3.6 mmol/L (3.5-5.1); SODIUM 144 mmol/L (136-145); UREA NITROGEN 22 mg/dL (7-18); eGFR NON AFRICAN AMERICAN 77 mL/min (90-120)
[2018-08-11 17:16] LABS: CKMB 0.8 U/L (0.0-3.6); CREATINE KINASE 63 UL (21-215); THYROID STIMULATING HORMONE 2.68 uIU/mL (0.36-3.74); TROPONIN-I 0.019 ng/mL (0.000-0.060)
[2018-08-11 17:52] LABS: EOSINOPHILS 2 % (0-7); LYMPHOCYTES 46 % (15-50); MONOCYTES 2 % (2-11); NEUTROPHILS 49 % (40-80); PLATELET ESTIMATE DECREASED
--- NOTE | 2018-08-11 18:03 | NUR ---
LACTIC ACID 2.2, NOTIFIED BY LAB AT THIS TIME. TREATING PROVIDER MADE AWARE.
--- NOTE | 2018-08-11 19:24 | NUR ---
HAND OFF REPORT GIVEN TO ROE RUST IN ED. REPORT CALLED TO [facility] FLOOR NURSE FOR ROOM 2213 ASSIGNED TO PT AT APPROX. 1900.
[2018-08-11] MEDS ORDERED: PROTONIX40 MG PO (20:28)
[2018-08-11] MEDS ORDERED: NAPROSYN500 MG PO (20:31)
[2018-08-11 20:44] VITALS: BP 138/61; BMI 29.3
[2018-08-12] VITALS (10 sets, daily range): BP systolic 94–150; BP diastolic 55–84; Ht 157.5 cm; Wt 72.6 kg
--- NOTE | 2018-08-12 03:02 | NUR ---
resting in bed no needs noted or statsed
[2018-08-12 06:38] LABS: HEMOGLOBIN 9.3 g/dL (12-16); LYMPHOCYTES 44.3 % (15-50); MCH 34.7 pg (26.0-34.0); MCHC 35.8 g/dL (31.0-37.0); MEAN PLATELET VOLUME 10.1 fL (7.4-10.4); NEUTROPHILS 43.2 % (40-80); PLATELET COUNT 74 10x3/uL (130-400); RBC 2.68 10x6/uL (4.00-5.40); RDW 17.2 % (11.5-14.5); WBC 2.1 10x3/uL (4.8-10.8)
[2018-08-12 07:34] LABS: ALBUMIN 2.1 g/dL (3.4-5.0); ALKALINE PHOSPHATASE 194 U/L (46-116); ALT (SGPT) 19 U/L (10-68); BILIRUBIN - TOTAL 2.05 mg/dL (0.2-1.3); CALC OSMOLALITY 289 mosm/kg (275-300); CALCIUM 7.8 mg/dL (8.5-10.1); CARBON DIOXIDE 21.6 mmol/L (21.0-32.0); CHLORIDE - SERUM 115 mmol/L (98-107); CREATININE - SERUM 0.6 mg/dL (0.6-1.3); GLUCOSE 78 mg/dL (74-106); PROTEIN - SERUM 4.5 g/dL (6.4-8.2); SODIUM 145 mmol/L (136-145); UREA NITROGEN 18 mg/dL (7-18); eGFR NON AFRICAN AMERICAN > 90 mL/min (90-120)
--- NOTE | 2018-08-12 08:00 | NUR ---
ASSESSMENT PER FLOW SHEET. PT IS WITHOUT DISTRESS.FAMILY AT BEDSIDE.CALL LIGHT IN REACH
--- NOTE | 2018-08-12 10:25 | NUR ---
SPOKE WITH SHOSHANA IN TRIAL LAW[employer]ER. HE WILL INFORM DR. ONEILL OF RUN OF R.
--- NOTE | 2018-08-12 11:24 | NUR ---
PT IS IN SHOWER. I WILL TAKE AM MEDS AND PAIN MEDS WHEN SHE IS FINISHED
--- NOTE | 2018-08-12 12:06 | NUR ---
SHOWER COMPLETE. PT BACK TO BED.FALL PREVENTION INITIATED WITH FELIX.
--- NOTE | 2018-08-12 12:38 | NUR ---
SCD'S PLACED ON PT.
--- NOTE | 2018-08-12 18:28 | NUR ---
REMAINS WITHOUT DISTRESS,WITHOUT CHANGE.CONT PLAN OF CARE
--- NOTE | 2018-08-12 20:00 | NUR ---
ASSESSMENT PER FLOWSHEET. SPOUSE AT BEDSIDE. IV PATENT RT HAND SALINE LOCK. SITE CLEAR. SR UP X2 CALL LIGHT WITHIN REACH. SCD'S AND FELIX MAT ON YELLOW SAFETY MEASURES IN USE. TELM.SR WITH HR 87.LARGE PURPLE BRUISE TO RT SHOULDER.
--- NOTE | 2018-08-12 22:00 | NUR ---
MEDS GIVEN PER MAR.
--- NOTE | 2018-08-13 00:26 | NUR ---
C/O SHOULDER PAIN OXYIR 10MG PO GIVEN FOR PAIN CONTROL.
[2018-08-13 00:43] VITALS: BP 135/55
--- NOTE | 2018-08-13 01:29 | NUR ---
EYES CLOSED RESPIRATIONS WITH EASE AND UNLABORED.
[2018-08-13 05:33] VITALS: BP 133/59
[2018-08-13 05:41] LABS: HEMATOCRIT 25.9 % (36.0-48.0); HEMOGLOBIN 8.9 g/dL (12-16); MCH 33.5 pg (26.0-34.0); MCHC 34.4 g/dL (31.0-37.0); MCV 97.4 fL (80.0-100.0); MEAN PLATELET VOLUME 10.2 fL (7.4-10.4); PLATELET COUNT 83 10x3/uL (130-400); RBC 2.66 10x6/uL (4.00-5.40); RDW 17.2 % (11.5-14.5); WBC 2.4 10x3/uL (4.8-10.8)
[2018-08-13 06:08] LABS: BILIRUBIN - TOTAL 1.9 mg/dL (0.2-1.3); CARBON DIOXIDE 22.6 mmol/L (21.0-32.0); POTASSIUM - SERUM 3.6 mmol/L (3.5-5.1); PROTEIN - SERUM 4.7 g/dL (6.4-8.2)
[2018-08-13 06:21] LABS: CREATININE - SERUM 0.9 mg/dL (0.6-1.3)
--- NOTE | 2018-08-13 08:01 | NUR ---
PT UP TO BR. AT BEDSIDE. BROUGHT PT SOME ICE. NO S/S OF ACUTE DISTRESS. CL IN PLACE.
[2018-08-13 08:34] LABS: ANISOCYTOSIS OCC; EOSINOPHILS 4 % (0-7); LYMPHOCYTES 49 % (15-50); MONOCYTES 5 % (2-11); NEUTROPHILS 42 % (40-80); PLATELET ESTIMATE DECREASED
[2018-08-13 10:35] VITALS: BP 125/46
[2018-08-13] MEDS ORDERED: CHRONULAC30 ML PO (12:10)
[2018-08-13 13:45] VITALS: BP 157/85
--- NOTE | 2018-08-13 14:20 | NUR ---
DC INSTRUCTIONS AND EDUCATION DONE WITH PT. DC IV WITH TIP INTACT. VOLUNTEER ASSISTED PT OFF THE FLOOR VIA WC. TOOK BELONGINGS DOWN. NO S/S OF ACUTE DISTRESS.
== END 2018-08-13 15:41 | disposition home or self-care (01) | DRG 442 ==
LOC: D.ER 16:13 → D.EDHOLD 19:00 → D.MS 19:01
PROVIDERS: Family Medicine; ADMIT Family Medicine; ATTEND Family Medicine
DX: K72.90 Hepatic failure, unspecified without coma (principal); E72.20 Disorder of urea cycle metabolism, unspecified; D61.818 Other pancytopenia; G45.9 Transient cerebral ischemic attack, unspecified; E87.8 Other disorders of electrolyte and fluid balance, not elsewhere classified; Z86.73 Personal history of transient ischemic attack (TIA), and cerebral infarction without residual deficits; K74.60 Unspecified cirrhosis of liver; F41.9 Anxiety disorder, unspecified; Z78.0 Asymptomatic menopausal state; M81.0 Age-related osteoporosis without current pathological fracture; I50.9 Heart failure, unspecified; I25.10 Atherosclerotic heart disease of native coronary artery without angina pectoris; B18.2 Chronic viral hepatitis C

== ENCOUNTER 2018-09-05 12:10 | Emergency (ER) | payer MEDICAID ==
[~2018-09-05] VITALS: Ht 157.5 cm; Wt 72.7 kg
[~2018-09-05 12:10] MED LIST changes: +NAPROSYN500 MG PO; +PROTONIX40 MG PO
[2018-09-05 12:27] VITALS: Ht 157.5 cm; Wt 72.7 kg
[2018-09-05 12:55] LABS: APPEARANCE CLEAR (CLEAR); BILIRUBIN NEGATIVE (NEGATIVE); COLOR STRAW (YELLOW); GLUCOSE NEGATIVE (NEGATIVE); KETONE NEGATIVE (NEGATIVE); NITRITE NEGATIVE (NEGATIVE); PROTEIN NEGATIVE (NEGATIVE); SPECIFIC GRAVITY 1.025 (1.005-1.020)
[2018-09-05 12:55] LABS: HEMATOCRIT 29.3 % (36.0-48.0); MCH 33.7 pg (26.0-34.0); MCHC 34.1 g/dL (31.0-37.0); MCV 98.7 fL (80.0-100.0); PLATELET COUNT 94 10x3/uL (130-400); RBC 2.97 10x6/uL (4.00-5.40); RDW 16.5 % (11.5-14.5); WBC 2.1 10x3/uL (4.8-10.8)
[2018-09-05 13:08] LABS: ALBUMIN 2.2 g/dL (3.4-5.0); ALKALINE PHOSPHATASE 233 U/L (46-116); ALT (SGPT) 21 U/L (10-68); AMYLASE - SERUM 32 U/L (25-115); BILIRUBIN - TOTAL 1.93 mg/dL (0.2-1.3); CALC OSMOLALITY 290 mosm/kg (275-300); CALCIUM 8.3 mg/dL (8.5-10.1); CARBON DIOXIDE 27.5 mmol/L (21.0-32.0); CHLORIDE - SERUM 114 mmol/L (98-107); CREATININE - SERUM 0.8 mg/dL (0.6-1.3); GLUCOSE 95 mg/dL (74-106); LIPASE 124 U/L (73-393); POTASSIUM - SERUM 3.7 mmol/L (3.5-5.1); PROTEIN - SERUM 5.2 g/dL (6.4-8.2); SODIUM 146 mmol/L (136-145); UREA NITROGEN 12 mg/dL (7-18); eGFR NON AFRICAN AMERICAN 77 mL/min (90-120)
[2018-09-05 13:27] LABS: BASOPHILS 2 % (0-2); EOSINOPHILS 1 % (0-7); LYMPHOCYTES 52 % (15-50); MONOCYTES 4 % (2-11); NEUTROPHILS 38 % (40-80); PLATELET ESTIMATE DECREASED
[2018-09-05 17:46] VITALS: BP 135/64
== END 2018-09-05 17:40 | disposition home or self-care (01) ==
LOC: D.ER 12:10
PROVIDERS: Family Medicine
DX: K72.90 Hepatic failure, unspecified without coma (principal); Z86.19 Personal history of other infectious and parasitic diseases

== ENCOUNTER 2018-11-07 13:52 | Outpatient (CLI) | payer MEDICAID ==
[~2018-11-07] VITALS: Ht 157.5 cm; Wt 85.5 kg
[2018-11-07 15:04] VITALS: BP 119/59; Ht 157.5 cm; Wt 85.5 kg
--- NOTE | 2018-11-07 20:00 | NUR ---
PATIENT TRANSFERRED TO ROOM 1209 FOR REMAINDER OF TRANSFUSION DUE TO DEPARTMENT CLOSING
--- NOTE | 2018-11-07 21:00 | NUR ---
ASSESSED AT TIME OF TRANSFER TO ROOM FROM OUT PATIENT. PT WAS ALERT AND ORIENTED, ABLE TO VERBALIZE NEEDS. SHE WAS FINISHING UP HER SECOND UNIT OF BLOOD AND THEN SET TO GO HOME. AFTER BLOOD WAS FINSIHED HER IV SITE WAS DC'S AND A PRESSURE DRESSING WAS APPLIED. WHILE HERE, SHE HAD SNACKS/DRINKS, AND FWAS ASSISTED TO THE BEDPAN SEVERAL TIMES. SHE WATCHED TV AND WAITED FOR HER FAMILY TO GET HER. SHE SIGNED ALL HER PAPERWORK AFTER IT WAS EXPLAINED TO HER. AFTER ASSISTING HER TO DRESS SHE WAS ASSISTED BY HER GRANDSON INTO HER W/C AND WITH HER HOME O2 WAS TAKEN TO THE CAR. NO COMPLAINTS VOICED.
== END 2018-11-07 21:00 | disposition home or self-care (01) ==
LOC: D.OPS 13:52 → D.M3 20:00 → D.OPS 21:00
PROVIDERS: ATTEND Family Medicine
DX: D64.9 Anemia, unspecified (principal)

== ENCOUNTER 2018-11-11 12:27 | Emergency (ER) | payer MEDICAID ==
[~2018-11-11] VITALS: Ht 157.5 cm; Wt 70.0 kg
[2018-11-11 12:30] VITALS: BP 123/57; Ht 157.5 cm; Wt 70.0 kg
[2018-11-11] MEDS ORDERED: ALDACTONE25 MG PO (12:40)
[2018-11-11 13:12] LABS: BASOPHILS 0.6 % (0-2); EOSINOPHILS 5.8 % (0-7); HEMATOCRIT 31.1 % (36.0-48.0); HEMOGLOBIN 10.6 g/dL (12-16); MCH 34.2 pg (26.0-34.0); MCHC 34.1 g/dL (31.0-37.0); MCV 100.3 fL (80.0-100.0); MEAN PLATELET VOLUME 9.1 fL (7.4-10.4); NEUTROPHILS 55.6 % (40-80); RDW 20.1 % (11.5-14.5); WBC 4.7 10x3/uL (4.8-10.8)
[2018-11-11 13:13] LABS: PLATELET COUNT 131 10x3/uL (130-400)
[2018-11-11 13:36] LABS: ALKALINE PHOSPHATASE 208 U/L (46-116); ALT (SGPT) 22 U/L (10-68); BILIRUBIN - TOTAL 2.38 mg/dL (0.2-1.3); CALC OSMOLALITY 290 mosm/kg (275-300); CALCIUM 8.3 mg/dL (8.5-10.1); CARBON DIOXIDE 29.9 mmol/L (21.0-32.0); CHLORIDE - SERUM 110 mmol/L (98-107); CREATININE - SERUM 0.8 mg/dL (0.6-1.3); GLUCOSE 128 mg/dL (74-106); POTASSIUM - SERUM 3.8 mmol/L (3.5-5.1); PROTEIN - SERUM 5.4 g/dL (6.4-8.2); SODIUM 145 mmol/L (136-145); UREA NITROGEN 12 mg/dL (7-18); eGFR NON AFRICAN AMERICAN 77 mL/min (90-120)
== END 2018-11-11 14:27 | disposition home or self-care (01) ==
LOC: D.ER 12:27
PROVIDERS: Family Medicine
DX: T81.30XA Disruption of wound, unspecified, initial encounter (principal); M16.11 Unilateral primary osteoarthritis, right hip

== ENCOUNTER → 2018-12-13 12:23 | Outpatient (CLI) | payer MEDICAID ==
[2018-11-11 12:30] VITALS: BMI 34.4
[~2018-12-13 12:23] MED LIST changes: +ALDACTONE25 MG PO
[2018-12-13 13:15] LABS: BASOPHILS 0.1 % (0-2); EOSINOPHILS 0.8 % (0-7); HEMATOCRIT 26.7 % (36.0-48.0); HEMOGLOBIN 9.2 g/dL (12-16); IMMATURE GRANULOCYTES 0.2 % (0-5); LYMPHOCYTES 10.9 % (15-50); MCH 35.5 pg (26.0-34.0); MCHC 34.5 g/dL (31.0-37.0); MCV 103.1 fL (80.0-100.0); MEAN PLATELET VOLUME 9.2 fL (7.4-10.4); MONOCYTES 5.2 % (2-11); NEUTROPHILS 82.8 % (40-80); RBC 2.59 10x6/uL (4.00-5.40); RDW 17.6 % (11.5-14.5); WBC 10.1 10x3/uL (4.8-10.8)
[2018-12-13 13:16] LABS: ALBUMIN 1.8 g/dL (3.4-5.0); ANION GAP 7.5 mmol/L (8-16); BILIRUBIN - TOTAL 2.47 mg/dL (0.2-1.3); CALCIUM 7.8 mg/dL (8.5-10.1); CREATININE - SERUM 0.9 mg/dL (0.6-1.3); PLATELET COUNT 104 10x3/uL (130-400); POTASSIUM - SERUM 3.5 mmol/L (3.5-5.1); PROTEIN - SERUM 5.2 g/dL (6.4-8.2)
== END | disposition home or self-care (01) ==
LOC: D.LABREF 12:23
PROVIDERS: ATTEND Family Medicine
DX: K74.60 Unspecified cirrhosis of liver (principal); I11.0 Hypertensive heart disease with heart failure; I50.9 Heart failure, unspecified

== ENCOUNTER → 2019-01-20 18:33 | Outpatient (CLI) | payer MEDICAID ==
[2018-11-11 12:30] VITALS: BMI 34.4
== END | disposition home or self-care (01) ==
LOC: D.LABREF 18:33
PROVIDERS: ATTEND Family Medicine
DX: I50.9 Heart failure, unspecified (principal); K72.90 Hepatic failure, unspecified without coma; M06.9 Rheumatoid arthritis, unspecified; I25.10 Atherosclerotic heart disease of native coronary artery without angina pectoris

== ENCOUNTER 2019-03-16 15:07 | Inpatient (IN) | payer MEDICAID ==
[~2019-03-16] VITALS: Ht 157.5 cm; Wt 68.0 kg
[2019-03-16] MEDS ORDERED: GABAPENTIN300 MG PO (15:32)
[2019-03-16 16:25] LABS: APPEARANCE HAZY (CLEAR); BILIRUBIN NEGATIVE (NEGATIVE); COLOR DK YELLOW (YELLOW); GLUCOSE NEGATIVE (NEGATIVE); KETONE NEGATIVE (NEGATIVE); NITRITE NEGATIVE (NEGATIVE); PROTEIN NEGATIVE (NEGATIVE); SPECIFIC GRAVITY 1.025 (1.005-1.020); UROBILINOGEN NORMAL (NORMAL)
[2019-03-16 16:26] LABS: UDS - AMPHET NEGATIVE QUAL (NEGATIVE); UDS - BARB NEGATIVE QUAL (NEGATIVE); UDS - BENZO NEGATIVE QUAL (NEGATIVE); UDS - COCAINE NEGATIVE QUAL (NEGATIVE); UDS - OPIATE NEGATIVE QUAL (NEGATIVE); UDS - PCP NEGATIVE QUAL (NEGATIVE); UDS - THC NEGATIVE QUAL (NEGATIVE)
[2019-03-16 17:08] LABS: HEMATOCRIT 31.2 % (36.0-48.0); HEMOGLOBIN 10.2 g/dL (12-16); MCH 34.1 pg (26.0-34.0); MCHC 32.7 g/dL (31.0-37.0); MCV 104.3 fL (80.0-100.0); MEAN PLATELET VOLUME 9.4 fL (7.4-10.4); PLATELET COUNT 101 10x3/uL (130-400); RBC 2.99 10x6/uL (4.00-5.40); RDW 16.9 % (11.5-14.5)
[2019-03-16 17:23] LABS: APTT 29.2 SECONDS (22.8-39.4); INR 1.46 (0.85-1.17); PROTIME 17.2 SECONDS (11.6-15.0)
[2019-03-16 17:30] LABS: CALC OSMOLALITY 284 mosm/kg (275-300); CALCIUM 8.5 mg/dL (8.5-10.1); CHLORIDE - SERUM 111 mmol/L (98-107); CREATININE - SERUM 0.9 mg/dL (0.6-1.3); GLUCOSE 113 mg/dL (74-106); POTASSIUM - SERUM 3.8 mmol/L (3.5-5.1); SODIUM 143 mmol/L (136-145); UREA NITROGEN 11 mg/dL (7-18); eGFR NON AFRICAN AMERICAN 67 mL/min (90-120)
[2019-03-16 17:47] LABS: EOSINOPHILS 3 % (0-7); LYMPHOCYTES 29 % (15-50); MONOCYTES 6 % (2-11); NEUTROPHILS 61 % (40-80); PLATELET ESTIMATE DECREASED
[2019-03-16 17:53] LABS: ALBUMIN 1.8 g/dL (3.4-5.0); ALKALINE PHOSPHATASE 195 U/L (46-116); ALT (SGPT) 32 U/L (10-68); BILIRUBIN - TOTAL 2.42 mg/dL (0.2-1.3); CKMB 0.4 U/L (0.0-3.6); CREATINE KINASE 31 UL (21-215); MAGNESIUM - SERUM 1.9 mg/dL (1.8-2.4); PROTEIN - SERUM 6.8 g/dL (6.4-8.2); THYROID STIMULATING HORMONE 4.01 uIU/mL (0.36-3.74); TROPONIN-I < 0.017 ng/mL (0.000-0.060)
[2019-03-16 19:30] VITALS: BP 143/62
[2019-03-16] MEDS ORDERED: NYSTATIN1 PWD TOPICAL (22:38)
[2019-03-17 00:30] VITALS: BP 102/49
[2019-03-17 01:45] VITALS: BMI 27.5
--- NOTE | 2019-03-17 01:51 | NUR ---
I have reviewed this patient and I concur with the Shift Assessment completed by the Licensed Practical Nurse today this shift.
[2019-03-17 05:25] VITALS: BP 137/61
[2019-03-17 05:35] LABS: BASOPHILS 0.4 % (0-2); HEMATOCRIT 27.6 % (36.0-48.0); HEMOGLOBIN 9.1 g/dL (12-16); IMMATURE GRANULOCYTES 0.4 % (0-5); LYMPHOCYTES 35.4 % (15-50); MCH 34.3 pg (26.0-34.0); MCV 104.2 fL (80.0-100.0); MEAN PLATELET VOLUME 9.2 fL (7.4-10.4); NEUTROPHILS 44.8 % (40-80); PLATELET COUNT 98 10x3/uL (130-400); RBC 2.65 10x6/uL (4.00-5.40); RDW 16.9 % (11.5-14.5); WBC 2.4 10x3/uL (4.8-10.8)
[2019-03-17 06:02] LABS: ANION GAP 11.3 mmol/L (8-16); CALCIUM 8.3 mg/dL (8.5-10.1); CARBON DIOXIDE 23.2 mmol/L (21.0-32.0); MAGNESIUM - SERUM 1.9 mg/dL (1.8-2.4); PHOSPHOROUS 3.2 mg/dL (2.5-4.9); POTASSIUM - SERUM 3.5 mmol/L (3.5-5.1); T4 THYROXIN - FREE 1.09 ng/dL (0.76-1.46)
--- NOTE | 2019-03-17 07:53 | NUR ---
ALERT AND ORIENTED. LUNGS CLEAR BILATERALLY. HEART SOUNDS S1 AND S2 HEARD IN ALL DUNCAN. BOWEL SOUNDS ACTIVE X 4. SKIN INTACT WITHOUT REDNESS. RIGHT ARM CONTRACTED. IV SITED TO [facility] BY VASCULAR ACCESS NURSE PATIENT DENIES NEEDS. BED LOW. CALL MCDANIEL AND PERSONAL ITEMS IN REACH. WILL CONTINUE TO MONITOR.
[2019-03-17 08:43] VITALS: BP 122/56
[2019-03-17] MEDS ORDERED: NEURONTIN 300300 MG PO (09:03)
--- NOTE | 2019-03-17 12:10 | NUR ---
RESTING IN BED. DENIES NEEDS. WILL CONTINUE TO MONITOR.
[2019-03-17 12:43] VITALS: BP 136/60
[2019-03-17 13:09] VITALS: Ht 157.5 cm; Wt 68.0 kg
--- NOTE | 2019-03-17 14:35 | NUR ---
RESTING IN BED. AT BEDSIDE. DENIES NEEDS. WILL CONTINUE TO MONITOR.
[2019-03-17 16:54] VITALS: BP 142/63
[2019-03-17] MEDS ORDERED: ALDACTONE25 MG PO (17:03)
[2019-03-17] MEDS ORDERED: XIFAXAN550 MG PO (17:03)
--- NOTE | 2019-03-17 18:12 | NUR ---
DISCHARGE EDUCATION PROVIDED BOTH WRITTEN AND VERBAL. VERBALIZED UNDERSTANDING. DENIES FURTHER QUESTIONS. IV REMOVED FROM LFA WITH TIP INTACT. FLU SHOT GIVEN PER REQUEST IN LEFT DELTOID. SIGNED DC PAPERWORK PER PATIENT REQUEST D/T PATIENT RIGHT ARM CONTRACTED. PATIENT DISCHARGEED HOME WITH WITH ALL BELONGINGS.
[2019-03-19 11:09] LABS: THYROGLOBULIN ANTIBODY <1.0 IU/mL (0.0-0.9); THYROID PEROXIDASE ABS 10 IU/mL (0-34)
--- NOTE | 2019-03-20 13:22 | MORECARE ---
CASE MANAGEMENT DISCHARGE SUMMARY PATIENT: BRENDA CLANCY RITU UNIT: [id number] ADM DATE: 03/16/19 AGE: 63 : 59 SEX: F ROOM/BED: D.[facility] AUTHOR: ML KNAPP PHYSICIAN: REFERRING PHYSICIAN: RENAE BELTRAN MD DATE OF SERVICE: 03/20/19 Discharge Plan Patient Name: BRENDA CLANCY [facility] [facility] 1955 Planned Disposition: Anticipated Discharge Date: Discharge Date: 03/17/2019 Expected LOS: 0 Initial Reviewer: [email or web address] Initial Review Date: 03/20/2019 Generated: 03/20/19 2:22 pm Patient Name: BRENDA CLANCY Page [phone] at 1322 All edits/amendments must be made on the electronic document DICTATION DATE: 03/20/19 1322 RN LABOR AND DELIVERY: KIM 03/20/19 1322 RPT#: [id number] DC DATE:03/17/19 STATUS: DIS IN [facility] [address] [place] [address] END OF REPORT
== END 2019-03-17 18:27 | disposition home or self-care (01) | DRG 442 ==
LOC: D.ER 15:07 → D.MS 18:03
PROVIDERS: Emergency Medicine; ADMIT Family Medicine; ATTEND Family Medicine
DX: K72.00 Acute and subacute hepatic failure without coma (principal); E72.20 Disorder of urea cycle metabolism, unspecified; D61.818 Other pancytopenia; I50.32 Chronic diastolic (congestive) heart failure; D53.9 Nutritional anemia, unspecified; E03.9 Hypothyroidism, unspecified; K74.60 Unspecified cirrhosis of liver; M54.9 Dorsalgia, unspecified; G47.33 Obstructive sleep apnea (adult) (pediatric); I25.10 Atherosclerotic heart disease of native coronary artery without angina pectoris

== ENCOUNTER → 2019-09-29 09:58 | Outpatient (CLI) | payer MEDICAID ==
[2019-03-17 13:09] VITALS: BMI 27.4
[~2019-09-29 09:58] MED LIST changes: +GABAPENTIN300 MG PO; +NEURONTIN 300300 MG PO; +NYSTATIN1 PWD TOPICAL
[2019-09-29 11:46] LABS: % SATURATION 70 % (15-55); IRON 95 ug/dl (35-150); TOTAL IRON BIND CAPACITY 134 ug/dl (260-445)
[2019-09-29 11:47] LABS: UNSAT IRON BIND CAPACITY 39 ug/dl (150-375)
== END | disposition home or self-care (01) ==
LOC: D.US 09:58
PROVIDERS: ATTEND Nurse Practitioner Acute Care
DX: K74.60 Unspecified cirrhosis of liver (principal); D50.9 Iron deficiency anemia, unspecified

== ENCOUNTER → 2019-10-14 15:26 | Outpatient (CLI) | payer MEDICAID ==
[2019-03-17 13:09] VITALS: BMI 27.4
== END | disposition home or self-care (01) ==
LOC: D.LAB 15:26
PROVIDERS: ATTEND Nurse Practitioner Acute Care
DX: R79.0 Abnormal level of blood mineral (principal)

== ENCOUNTER → 2019-12-16 20:14 | Outpatient (CLI) | payer MEDICAID ==
[2019-03-17 13:09] VITALS: BMI 27.4
[2019-12-16 21:06] LABS: CALC OSMOLALITY 278 mosm/kg (275-300); CALCIUM 7.7 mg/dL (8.5-10.1); CARBON DIOXIDE 26.4 mmol/L (21.0-32.0); CHLORIDE - SERUM 110 mmol/L (98-107); CREATININE - SERUM 0.8 mg/dL (0.6-1.3); GLUCOSE 94 mg/dL (74-106); POTASSIUM - SERUM 3.8 mmol/L (3.5-5.1); SODIUM 139 mmol/L (136-145); UREA NITROGEN 16 mg/dL (7-18); eGFR NON AFRICAN AMERICAN 77 mL/min (90-120)
== END | disposition home or self-care (01) ==
LOC: D.LABREF 20:14
PROVIDERS: ATTEND Family Medicine
DX: I25.10 Atherosclerotic heart disease of native coronary artery without angina pectoris (principal); I50.9 Heart failure, unspecified; M16.11 Unilateral primary osteoarthritis, right hip

== ENCOUNTER 2020-07-22 12:28 | Emergency (ER) | payer MEDICAID ==
[~2020-07-22] VITALS: Ht 157.5 cm; Wt 63.2 kg
[2020-07-22 12:38] VITALS: Ht 157.5 cm; Wt 63.2 kg
[2020-07-22 13:54] LABS: BASOPHILS 0.2 % (0-2); EOSINOPHILS 0.5 % (0-7); HEMATOCRIT 36.6 % (36.0-48.0); HEMOGLOBIN 12.4 g/dL (12-16); IMMATURE GRANULOCYTES 0.2 % (0-5); LYMPHOCYTE ABS# 1.01 10x3/uL (1.18-3.74); MCH 35.1 pg (26.0-34.0); MCHC 33.9 g/dL (31.0-37.0); MCV 103.7 fL (80.0-100.0); MEAN PLATELET VOLUME 10.3 fL (7.4-10.4); MONOCYTES 10.4 % (2-11); NEUTROPHIL ABS# 7.96 10x3/uL (1.56-6.13); NEUTROPHILS 78.7 % (40-80); PLATELET COUNT 108 10x3/uL (130-400); RBC 3.53 10x6/uL (4.00-5.40); RDW 17.4 % (11.5-14.5); WBC 10.1 10x3/uL (4.8-10.8)
[2020-07-22 14:01] LABS: CALC OSMOLALITY 295 mosm/kg (275-300); CALCIUM 9.6 mg/dL (8.5-10.1); CARBON DIOXIDE 27.6 mmol/L (21.0-32.0); CHLORIDE - SERUM 112 mmol/L (98-107); POTASSIUM - SERUM 3.5 mmol/L (3.5-5.1); SODIUM 146 mmol/L (136-145); UREA NITROGEN 17 mg/dL (7-18); eGFR NON AFRICAN AMERICAN 59 mL/min (90-120)
[2020-07-22 14:03] LABS: GLUCOSE 152 mg/dL (74-106)
[2020-07-22 14:13] LABS: APTT 31.4 SECONDS (22.8-39.4); INR 1.58 (0.85-1.17); PROTIME 17.5 SECONDS (11.6-15.0)
[2020-07-22 14:18] LABS: ALBUMIN 2.4 g/dL (3.4-5.0); ALKALINE PHOSPHATASE 134 U/L (30-120); ALT (SGPT) 40 U/L (10-68); BILIRUBIN - TOTAL 2.98 mg/dL (0.2-1.3); CKMB 0.1 U/L (0.0-3.6); CREATINE KINASE 24 UL (21-215); MAGNESIUM - SERUM 2.1 mg/dL (1.8-2.4); PROTEIN - SERUM 5.5 g/dL (6.4-8.2); THYROID STIMULATING HORMONE 0.86 uIU/mL (0.36-3.74); TROPONIN-I 0.021 ng/mL (0.000-0.060)
[2020-07-22 16:51] LABS: UDS - AMPHET NEGATIVE QUAL (NEGATIVE); UDS - BARB NEGATIVE QUAL (NEGATIVE); UDS - BENZO NEGATIVE QUAL (NEGATIVE); UDS - COCAINE NEGATIVE QUAL (NEGATIVE); UDS - OPIATE POSITIVE QUAL (NEGATIVE); UDS - PCP NEGATIVE QUAL (NEGATIVE); UDS - THC POSITIVE QUAL (NEGATIVE)
[2020-07-22 16:54] LABS: BILIRUBIN NEGATIVE (NEGATIVE); KETONE NEGATIVE (NEGATIVE); NITRITE NEGATIVE (NEGATIVE); UROBILINOGEN NORMAL mg/dL (< 2)
[2020-07-22 16:55] LABS: BACTERIA FEW HPF (NONE SEEN); WHITE CELLS - URINE 0-5 HPF (0-4)
[2020-07-22 18:10] VITALS: BP 132/67
== END 2020-07-22 18:11 | disposition home or self-care (01) ==
LOC: D.ER 12:28
PROVIDERS: Emergency Medicine
DX: K72.90 Hepatic failure, unspecified without coma (principal); K74.60 Unspecified cirrhosis of liver; I50.9 Heart failure, unspecified; K21.9 Gastro-esophageal reflux disease without esophagitis

== ENCOUNTER 2020-08-08 20:24 | Inpatient (IN) | payer MEDICAID ==
[~2020-08-08] VITALS: Ht 157.5 cm; Wt 68.0 kg
[2020-08-08 21:34] LABS: BASOPHILS 0.4 % (0-2); EOSINOPHILS 1.1 % (0-7); HEMATOCRIT 37.4 % (36.0-48.0); HEMOGLOBIN 12.7 g/dL (12-16); LYMPHOCYTES 23.3 % (15-50); MCH 35.4 pg (26.0-34.0); MEAN PLATELET VOLUME 7.7 fL (7.4-10.4); MONOCYTES 9.7 % (2-11); NEUTROPHILS 65.5 % (40-80); PLATELET COUNT 122 10x3/uL (130-400); RBC 3.59 10x6/uL (4.00-5.40); RDW 17.7 % (11.5-14.5); WBC 6.6 10x3/uL (4.8-10.8)
[2020-08-08 21:57] LABS: CALC OSMOLALITY 283 mosm/kg (275-300); CALCIUM 9.1 mg/dL (8.5-10.1); CARBON DIOXIDE 29.7 mmol/L (21.0-32.0); CHLORIDE - SERUM 107 mmol/L (98-107); CREATININE - SERUM 0.9 mg/dL (0.6-1.3); GLUCOSE 110 mg/dL (74-106); POTASSIUM - SERUM 3.8 mmol/L (3.5-5.1); SODIUM 142 mmol/L (136-145); UREA NITROGEN 13 mg/dL (7-18); eGFR NON AFRICAN AMERICAN 67 mL/min (90-120)
[2020-08-08 22:06] LABS: ALBUMIN 2.5 g/dL (3.4-5.0); ALKALINE PHOSPHATASE 136 U/L (30-120); ALT (SGPT) 41 U/L (10-68); BILIRUBIN - TOTAL 3.05 mg/dL (0.2-1.3); LIPASE 71 U/L (73-393); PRO BNP 130 pg/mL (0-125); PROTEIN - SERUM 5.5 g/dL (6.4-8.2)
[2020-08-08 22:07] LABS: TROPONIN-I < 0.017 ng/mL (0.000-0.060)
[2020-08-08] MEDS ORDERED: DILAUDID4 MG PO (23:55)
[2020-08-09] VITALS (7 sets, daily range): BP systolic 119–177; BP diastolic 58–83; Ht 157.5 cm; Wt 68.0 kg
--- NOTE | 2020-08-09 00:07 | NUR ---
PT ARRIVED ON UNIT VIA WHEELCHAIR, ESCORTED BY ER NURSE AND HER DAUGHTER. ORIENTED TO ROOM AND CALL LIGHT. PLACED FELIX BED ALARM ON BED FOR SAFETY. YELLOW GOWN AND GRIPPER SOCKS IN PLACE. SIDE RAILS UP X2 FOR SAFETY.
[2020-08-09 06:00] LABS: BASOPHILS 0.4 % (0-2); EOSINOPHILS 1.2 % (0-7); HEMOGLOBIN 10.2 g/dL (12-16); LYMPHOCYTES 28.3 % (15-50); MCH 36.7 pg (26.0-34.0); MCHC 35.5 g/dL (31.0-37.0); MCV 103.5 fL (80.0-100.0); MEAN PLATELET VOLUME 7.7 fL (7.4-10.4); MONOCYTES 8.3 % (2-11); NEUTROPHILS 61.8 % (40-80)
[2020-08-09 06:19] LABS: HEMATOCRIT 28.9 % (36.0-48.0); PLATELET COUNT 85 10x3/uL (130-400); RBC 2.79 10x6/uL (4.00-5.40); WBC 4.8 10x3/uL (4.8-10.8)
[2020-08-09 06:48] LABS: ALBUMIN 1.9 g/dL (3.4-5.0); ALKALINE PHOSPHATASE 106 U/L (30-120); ALT (SGPT) 34 U/L (10-68); BILIRUBIN - TOTAL 2.34 mg/dL (0.2-1.3); CALC OSMOLALITY 280 mosm/kg (275-300); CALCIUM 8.7 mg/dL (8.5-10.1); CARBON DIOXIDE 28.4 mmol/L (21.0-32.0); CHLORIDE - SERUM 110 mmol/L (98-107); CREATININE - SERUM 0.8 mg/dL (0.6-1.3); GLUCOSE 113 mg/dL (74-106); MAGNESIUM - SERUM 2.2 mg/dL (1.8-2.4); PHOSPHOROUS 2.4 mg/dL (2.5-4.9); POTASSIUM - SERUM 3.7 mmol/L (3.5-5.1); PROTEIN - SERUM 4.4 g/dL (6.4-8.2); SODIUM 141 mmol/L (136-145); UREA NITROGEN 11 mg/dL (7-18); eGFR NON AFRICAN AMERICAN 77 mL/min (90-120)
--- NOTE | 2020-08-09 07:16 | NUR ---
PT. RESTING QUIETLY IN BED, NO DISTRESS NOTED. FALL RISK, FALL ALARM ON, YELLOW GOWN ON. IV INTACT. CL WITHIN REACH, SRUPX2.
[2020-08-09 10:05] LABS: PLATELET ESTIMATE DECREASED
[2020-08-09 10:06] LABS: ANISOCYTOSIS OCC; HYPOCHROMASIA OCC; ROULEAUX OCC
[2020-08-09 12:19] LABS: INR 1.56 (0.85-1.17); PROTIME 17.3 SECONDS (11.6-15.0)
[2020-08-09 13:37] LABS: UDS - AMPHET NEGATIVE QUAL (NEGATIVE); UDS - BARB NEGATIVE QUAL (NEGATIVE); UDS - BENZO NEGATIVE QUAL (NEGATIVE); UDS - COCAINE NEGATIVE QUAL (NEGATIVE); UDS - OPIATE POSITIVE QUAL (NEGATIVE); UDS - PCP NEGATIVE QUAL (NEGATIVE); UDS - THC NEGATIVE QUAL (NEGATIVE)
[2020-08-09 14:42] LABS: BACTERIA FEW HPF (NONE SEEN); BILIRUBIN NEGATIVE (NEGATIVE); KETONE NEGATIVE (NEGATIVE); NITRITE NEGATIVE (NEGATIVE); SQUAMOUS EPITHELIAL OCC HPF (0-4); UROBILINOGEN 4 mg/dL (< 2); WHITE CELLS - URINE RARE HPF (0-4)
[2020-08-09 14:43] LABS: TALC POWDER CRYSTALS OCC HPF (NONE SEEN)
--- NOTE | 2020-08-09 19:45 | NUR ---
RECEIVED BEDSIDE REPORT. PT LAYING IN BED A&O X4. PIV TO RIGHT FOREARM, PATENT AND S/L, NO REDNESS OR SWELLING. TELEMETRY IN PLACE, 80 SR. CHAIRFAST. EDUCATED PT ON CL AND NEEDS, VERBALIZED UNDERSTANDING. BED LOW, CL IN REACH.
[2020-08-10] VITALS: BP 131/67
[2020-08-10 04:00] VITALS: BP 134/63
--- NOTE | 2020-08-10 07:35 | NUR ---
PT. RECEIVED AWAKE IN BED, ALERT TO SITUATION AND PERSON BUT UNSURE THE DAY. C/O PAIN ON R. SIDE OF ABDOMEN, SAYS SHES PASSING GAS, NO BM NOTED. ABD FIRM WITH HYPOACTIVE BOWEL SOUNDS. IV PATENT TO R. FA. SALINE LOCKED. FALL ALARM ON. CL WITHIN REACH. SRUPX2.
[2020-08-10 07:53] LABS: BASOPHILS 0.3 % (0-2); EOSINOPHILS 1.5 % (0-7); HEMATOCRIT 33.4 % (36.0-48.0); HEMOGLOBIN 11.5 g/dL (12-16); LYMPHOCYTES 23.1 % (15-50); MCH 35.6 pg (26.0-34.0); MCHC 34.4 g/dL (31.0-37.0); MCV 103.5 fL (80.0-100.0); MEAN PLATELET VOLUME 7.9 fL (7.4-10.4); MONOCYTES 12.3 % (2-11); NEUTROPHILS 62.8 % (40-80); RBC 3.22 10x6/uL (4.00-5.40); RDW 17.4 % (11.5-14.5)
[2020-08-10 08:01] LABS: ALBUMIN 2.3 g/dL (3.4-5.0); ANION GAP 10.3 mmol/L (8-16); BILIRUBIN - TOTAL 2.27 mg/dL (0.2-1.3); CALCIUM 8.7 mg/dL (8.5-10.1); CARBON DIOXIDE 28.3 mmol/L (21.0-32.0); CREATININE - SERUM 1.1 mg/dL (0.6-1.3); MAGNESIUM - SERUM 2.2 mg/dL (1.8-2.4); PHOSPHOROUS 3.3 mg/dL (2.5-4.9); POTASSIUM - SERUM 3.6 mmol/L (3.5-5.1)
[2020-08-10 08:14] LABS: PLATELET COUNT 112 10x3/uL (130-400); WBC 6.2 10x3/uL (4.8-10.8)
--- NOTE | 2020-08-10 08:54 | NUR ---
PT REFUSES ALDACTONE AND LASIX TABS THIS MORNING.
[2020-08-10 09:26] VITALS: BP 135/71
[2020-08-10 14:41] VITALS: BP 155/77
[2020-08-10 17:41] VITALS: BP 156/72
--- NOTE | 2020-08-10 19:45 | NUR ---
RECEIVED BEDSIDE REPORT. PT LAYING IN BED A&O X4. PIV TO RIGHT FOREARM, PATENT AND S/L, NO REDNESS OR SWELLING. TELEMETRY IN PLACE 83 SR. PT ABLE TO AMBULATE WITH ASSIST. EDUCATED PT ON CL AND NEEDS, VERBALIZED UNDERSTANDING. BED LOW, CL IN REACH.
[2020-08-10 20:00] VITALS: BP 149/65
[2020-08-11] VITALS: BP 113/57
[2020-08-11 04:00] VITALS: BP 162/60
[2020-08-11 06:05] LABS: BASOPHILS 0.5 % (0-2); EOSINOPHILS 1.9 % (0-7); HEMATOCRIT 33.4 % (36.0-48.0); HEMOGLOBIN 11.4 g/dL (12-16); LYMPHOCYTES 24.4 % (15-50); MCH 35.6 pg (26.0-34.0); MCHC 34.1 g/dL (31.0-37.0); MCV 104.3 fL (80.0-100.0); MEAN PLATELET VOLUME 7.2 fL (7.4-10.4); MONOCYTES 9.2 % (2-11); PLATELET COUNT 102 10x3/uL (130-400); RDW 17.4 % (11.5-14.5); WBC 6.3 10x3/uL (4.8-10.8)
[2020-08-11 06:35] LABS: ALBUMIN 2.2 g/dL (3.4-5.0); ANION GAP 8.6 mmol/L (8-16); BILIRUBIN - TOTAL 2.25 mg/dL (0.2-1.3); CALCIUM 8.6 mg/dL (8.5-10.1); CARBON DIOXIDE 29.6 mmol/L (21.0-32.0); MAGNESIUM - SERUM 2.3 mg/dL (1.8-2.4); PHOSPHOROUS 2.7 mg/dL (2.5-4.9); POTASSIUM - SERUM 4.2 mmol/L (3.5-5.1); PROTEIN - SERUM 4.8 g/dL (6.4-8.2)
--- NOTE | 2020-08-11 07:29 | NUR ---
RECIEVED BEDSIDE REPORT. PATIENT IN BED, SOME CONFUSION NOTED. PLACED BRIEF ON, AND PULLED UP IN THE BED. DENIES FURTHER NEEDS AT THIS TIME. FREE FROM SIGNS OF DISTRESS. BED LOW POSITION, CALL LIGHT IN REACH. WILL CONTINUE TO MONTIOR.
[2020-08-11 07:50] VITALS: BP 140/56
[2020-08-11 12:17] VITALS: BP 145/65
--- NOTE | 2020-08-11 14:28 | NUR ---
WALKED 80 FT WITH WALKER MIN ASSIT USED GT BELT
--- NOTE | 2020-08-11 14:39 | NUR ---
Nutrition follow-up: Diet order low sodium PO intake ~50% of meals Labs reviewed Lactulose being given; no BM charted Will continue to provide food choices and honor food preferences. RDN will follow-up on progress toward nutrition goals: 08/16/20
--- NOTE | 2020-08-11 15:26 | NUR ---
OT NOTE: PT DOING MUCH BETTER TODAY. SHE HAS FINISHED LUNCH AND WAS GLAD THAT SHE WAS ABLE TO "HAVE REAL FOOD TODAY"..BED MOB WITH SBA; AMB TO SINK WITH WALKER AND CGA; SINK HYGIENE WITH SBA; AMB TO BATHROOM (APPROX 6 FT) WITH WALKER AND SBA.. TOILETING WITH SPV; MIN ASSIST FOR SIT TO STAND FROM TOILET. AMB INTO HALLWAY APPROX 15 FT WITH WALKER AND CGA. PT STATED THAT SHE WANTS TO GO HOME. ABLE TO GET BACK IN BED WITH MIN ASSIST TO REPOSITION IN BED. TAWNYA AGUIRRE, OTR/L [phone]
[2020-08-11 17:07] VITALS: BP 154/63
--- NOTE | 2020-08-11 19:45 | NUR ---
RECEIVED BEDSIDE REPORT. PT LAYING IN BED A&O X4. PIV TO RIGHT FOREARM, PATENT AND S/L, NO REDNESS OR SWELLING. TELEMETRY IN PLACE 97 SR. INCONT AT TIMES. PT ABLE TO AMBULATE WITH ASSIST. EDUCATED ON CL AND NEEDS, VERBALIZED UNDERSTANDING. BED LOW, CL IN REACH.
[2020-08-11 20:00] VITALS: BP 135/65
[2020-08-12] VITALS: BP 125/60
--- NOTE | 2020-08-12 07:35 | NUR ---
RECIEVED BEDSIDE REPORT. BED LOW POSITION, FREE FROM SIGNS OF DISTRESS. CALL LIGHT IN REACH. IV SALINE LOCKED PER ORDERS. WILL CONITNUE TO MONITOR.
[2020-08-12 08:23] VITALS: BP 121/66
[2020-08-12 08:23] LABS: EOSINOPHILS 1.7 % (0-7); HEMATOCRIT 31.3 % (36.0-48.0); HEMOGLOBIN 10.8 g/dL (12-16); LYMPHOCYTES 24.4 % (15-50); MCH 36.3 pg (26.0-34.0); MCHC 34.4 g/dL (31.0-37.0); MCV 105.3 fL (80.0-100.0); MEAN PLATELET VOLUME 8.1 fL (7.4-10.4); MONOCYTES 12.7 % (2-11); NEUTROPHILS 60.2 % (40-80); PLATELET COUNT 94 10x3/uL (130-400); RBC 2.97 10x6/uL (4.00-5.40); WBC 6.5 10x3/uL (4.8-10.8)
[2020-08-12 08:34] LABS: ANION GAP 6.2 mmol/L (8-16); BILIRUBIN - TOTAL 2.45 mg/dL (0.2-1.3); CALCIUM 8.1 mg/dL (8.5-10.1); CARBON DIOXIDE 30.7 mmol/L (21.0-32.0); CREATININE - SERUM 1.1 mg/dL (0.6-1.3); MAGNESIUM - SERUM 2.2 mg/dL (1.8-2.4); PHOSPHOROUS 2.5 mg/dL (2.5-4.9); POTASSIUM - SERUM 3.9 mmol/L (3.5-5.1); PROTEIN - SERUM 4.7 g/dL (6.4-8.2)
[2020-08-12 09:39] LABS: PLATELET ESTIMATE DECREASED
[2020-08-12 12:19] VITALS: BP 120/59
--- NOTE | 2020-08-12 15:02 | NUR ---
GT BELT, PATIENT MIN ASST TO GET UP TO BEDSIDE AND STAND. PATIENT WALKED 80 FEET WITH MIN ASST USING WALKER.
--- NOTE | 2020-08-12 16:13 | MORECARE ---
CASE MANAGEMENT DISCHARGE SUMMARY PATIENT: BRENDA CLANCY UNIT: [id number] ADM DATE: 08/08/20 AGE: 65 : 59 SEX: F ROOM/BED: D.2239 AUTHOR: ARIA,DOC PHYSICIAN: REFERRING PHYSICIAN: FAHEEM CHAVES MD DATE OF SERVICE: 08/12/20 Case Management Discharge Planning Summary COMMENTS ENTERED DATE: 08/12/20 16:02 CT COMMENT TYPE: Discharge Planning REVIEWER: Ivet Abernathy CM met with patient at bedside after obtaining verbal consent. CM discussed availability / needs of home health, REHAB and medical equipment. Patient states her pcp Dr. Weeks office has been working on termite control technician placement for her and applying for jail Medicaid. She states they are working toward [facility] and rehab, choice letter signed and placed on chart. Patient states she lives at home with family and has a caregiver that comes 5 days per week with senior helpers. She has a hospital bed, walker, and scooter. States has had multiple falls recently at home. I need to call Dr. Brown office and get an update. Today is Saturday and a holiday weekend. It will be Saturday before I can get in touch with his office. DCP REVIEW SUMMARY ANTICIPATED D/C DATE: EXPECTED LOS : CASE STATUS: DCP Initiated INITIAL REVIEW: 08/08/2020 INITIAL REVIEWER: Ivet Abernathy FINAL DISCHARGE DISPOSITION: : FINAL REVIEWER: FINAL REVIEW DATE: DCP [employer] Questions & Answers QUESTION: ANSWER : PATIENT: BRENDA CLANCY ENCOUNTER: [id number] MEDICAL RECORD#: [id number] ADMISSION DATE: 08/08/2020 DISCHARGE DATE: ATTENDING MD: FAHEEM CORTES : AGE: 65 MARITAL STATUS: S DC PLAN ID: [id number] FACILITY: [facility] PRINTED ON: 08/12/20 16:13 CT All edits/amendments must be made on the electronic document DICTATION DATE: 08/12/201612 BEAM WORKER: KIM 08/12/20 161 RPT#: [id number] DC DATE: STATUS: ADM IN [facility] [address] [place] [address] END OF REPORT
--- NOTE | 2020-08-12 17:10 | NUR ---
OT NOTE; PT COMPLETED ADL MOB WITH SBA-CGA. PT COMPLETED TOILETING TASKS WITH SBA. PT COMPLETED HARSH/DOFF BRIEF WITH MIN A. CL IN REACH..ALARM ON. MAVIS VILLEDA COTA
[2020-08-12 17:17] VITALS: BP 117/61
[2020-08-12 21:43] VITALS: BP 129/65
[2020-08-13 05:38] VITALS: BP 142/80
[2020-08-13 07:45] LABS: BASOPHILS 0.6 % (0-2); HEMATOCRIT 33.1 % (36.0-48.0); HEMOGLOBIN 11.5 g/dL (12-16); LYMPHOCYTES 26.6 % (15-50); MCH 36.2 pg (26.0-34.0); MCHC 34.8 g/dL (31.0-37.0); MCV 104.2 fL (80.0-100.0); MEAN PLATELET VOLUME 7.5 fL (7.4-10.4); MONOCYTES 10.2 % (2-11); NEUTROPHILS 60.6 % (40-80); PLATELET COUNT 92 10x3/uL (130-400); RBC 3.18 10x6/uL (4.00-5.40); RDW 17.6 % (11.5-14.5); WBC 6.7 10x3/uL (4.8-10.8)
[2020-08-13 07:57] LABS: ALBUMIN 2.1 g/dL (3.4-5.0); ANION GAP 4.2 mmol/L (8-16); BILIRUBIN - TOTAL 2.81 mg/dL (0.2-1.3); CALCIUM 8.3 mg/dL (8.5-10.1); CARBON DIOXIDE 32.8 mmol/L (21.0-32.0); MAGNESIUM - SERUM 2.4 mg/dL (1.8-2.4); PHOSPHOROUS 2.6 mg/dL (2.5-4.9); PROTEIN - SERUM 4.9 g/dL (6.4-8.2)
[2020-08-13 10:28] VITALS: BP 138/61
[2020-08-13 14:19] VITALS: BP 145/55
[2020-08-13 18:36] VITALS: BP 131/60
[2020-08-13 21:03] VITALS: BP 143/74
[2020-08-14 05:13] VITALS: BP 95/3
[2020-08-14 06:58] LABS: BASOPHILS 0.7 % (0-2); HEMATOCRIT 34.9 % (36.0-48.0); HEMOGLOBIN 12.2 g/dL (12-16); LYMPHOCYTES 20.8 % (15-50); MCH 36.5 pg (26.0-34.0); MCHC 34.9 g/dL (31.0-37.0); MCV 104.7 fL (80.0-100.0); MEAN PLATELET VOLUME 7.7 fL (7.4-10.4); MONOCYTES 11.5 % (2-11); PLATELET COUNT 97 10x3/uL (130-400); RBC 3.33 10x6/uL (4.00-5.40); RDW 17.8 % (11.5-14.5); WBC 6.8 10x3/uL (4.8-10.8)
[2020-08-14 07:06] LABS: INR 1.51 (0.85-1.17); PROTIME 16.9 SECONDS (11.6-15.0)
[2020-08-14 07:17] LABS: ALBUMIN 2.3 g/dL (3.4-5.0); BILIRUBIN - TOTAL 3.33 mg/dL (0.2-1.3); CALCIUM 8.6 mg/dL (8.5-10.1); CARBON DIOXIDE 30.4 mmol/L (21.0-32.0); POTASSIUM - SERUM 4.4 mmol/L (3.5-5.1); PROTEIN - SERUM 5.2 g/dL (6.4-8.2)
[2020-08-14 07:47] LABS: PLATELET ESTIMATE DECREASED
[2020-08-14 09:56] VITALS: BP 127/62
[2020-08-14 14:06] VITALS: BP 129/75
[2020-08-14 18:38] VITALS: BP 135/71
[2020-08-14 20:00] VITALS: BP 136/57
[2020-08-15 04:00] VITALS: BP 114/63
[2020-08-15 06:35] LABS: BASOPHILS 0.5 % (0-2); EOSINOPHILS 2.2 % (0-7); HEMATOCRIT 36.6 % (36.0-48.0); HEMOGLOBIN 12.5 g/dL (12-16); LYMPHOCYTES 23.3 % (15-50); MCH 35.9 pg (26.0-34.0); MCHC 34.3 g/dL (31.0-37.0); MCV 104.7 fL (80.0-100.0); MEAN PLATELET VOLUME 7.2 fL (7.4-10.4); MONOCYTES 10.3 % (2-11); NEUTROPHILS 63.7 % (40-80); PLATELET COUNT 107 10x3/uL (130-400); RBC 3.49 10x6/uL (4.00-5.40); RDW 17.8 % (11.5-14.5); WBC 7.4 10x3/uL (4.8-10.8)
[2020-08-15 07:20] LABS: ALBUMIN 2.4 g/dL (3.4-5.0); ANION GAP 8.2 mmol/L (8-16); BILIRUBIN - TOTAL 3.94 mg/dL (0.2-1.3); CALCIUM 8.9 mg/dL (8.5-10.1); CARBON DIOXIDE 31.4 mmol/L (21.0-32.0); CREATININE - SERUM 1.1 mg/dL (0.6-1.3); POTASSIUM - SERUM 4.6 mmol/L (3.5-5.1); PROTEIN - SERUM 5.2 g/dL (6.4-8.2)
[2020-08-15 07:43] LABS: INR 1.57 (0.85-1.17); PROTIME 17.4 SECONDS (11.6-15.0)
--- NOTE | 2020-08-15 08:18 | NUR ---
RECIEVED BEDSIDE REPORT. IN BED RESTING. FREE FROM SIGNS OF DISTRESS. BED LOW POSITION, CALL LIGHT IN REACH. WILL CONTINUE TO MONITOR.
[2020-08-15 10:02] VITALS: BP 129/58
--- NOTE | 2020-08-15 10:05 | NUR ---
WALKED TO CHAIR MOD ASSIT WASNT FEELING WELL OK TO TRANSFER BACK WITH STAFF
[2020-08-15 13:32] VITALS: BP 152/80
--- NOTE | 2020-08-15 14:52 | NUR ---
OT NOTE: PPT COMPLETED SUPINE TO SIT WITH SBA-CGA. PT COMPLETED EOB SBA-CGA. PT COMPLETED SIT TO STAND WITH CGA. PT COMPLETED FACE HYGIENE WITH SETUP. [id number] THANK YOU,MIGUEL NAVARRETE
[2020-08-15 16:52] VITALS: BP 135/75
[2020-08-15 20:00] VITALS: BP 154/70
--- NOTE | 2020-08-16 00:25 | NUR ---
WALKING ROUNDS CHGE OF SHIFT SHUFFLE BOARD OPERATOR STATES WANTS TO SEE MY NURSE NOW. ENTERED RM. STATES WHAT DID DR SAY THIS MORNING.INSTRUCTED PRACTIONER WAS HER EARLY THIS AM ASKED DID YOU NOT GET TO SPEAK TO HER STATES YES STATES SHE SAID MY AMMONIA LEVEL WAS STILL ELEVATED. OK WILL CONTINUE TO MONITOR FOR ANY CHGES AND FOLLOW CURRENT PLAN OF CARE.
--- NOTE | 2020-08-16 03:53 | NUR ---
I have reviewed this patient and I concur with the Shift Assessment completed by the Licensed Practical Nurse today this shift.
[2020-08-16 04:00] VITALS: BP 115/56
[2020-08-16 06:31] LABS: INR 1.6 (0.85-1.17); PROTIME 17.7 SECONDS (11.6-15.0)
[2020-08-16 06:53] LABS: BASOPHILS 0.2 % (0-2); EOSINOPHILS 1.6 % (0-7); HEMATOCRIT 31.2 % (36.0-48.0); HEMOGLOBIN 10.7 g/dL (12-16); IMMATURE GRANULOCYTES 0.2 % (0-5); LYMPHOCYTE ABS# 1.39 10x3/uL (1.18-3.74); LYMPHOCYTES 22.3 % (15-50); MCH 35.3 pg (26.0-34.0); MCHC 34.3 g/dL (31.0-37.0); MEAN PLATELET VOLUME 9.6 fL (7.4-10.4); MONOCYTES 11.9 % (2-11); NEUTROPHIL ABS# 3.98 10x3/uL (1.56-6.13); NEUTROPHILS 63.8 % (40-80); PLATELET COUNT 90 10x3/uL (130-400); RBC 3.03 10x6/uL (4.00-5.40); RDW 17.1 % (11.5-14.5); WBC 6.2 10x3/uL (4.8-10.8)
[2020-08-16 06:55] LABS: PLATELET ESTIMATE DECREASED
[2020-08-16 07:02] LABS: ALBUMIN 2.1 g/dL (3.4-5.0); ANION GAP 8.8 mmol/L (8-16); BILIRUBIN - TOTAL 2.98 mg/dL (0.2-1.3); CALCIUM 8.2 mg/dL (8.5-10.1); CARBON DIOXIDE 30.2 mmol/L (21.0-32.0); PROTEIN - SERUM 4.8 g/dL (6.4-8.2)
--- NOTE | 2020-08-16 07:51 | NUR ---
0700 BEDSIDE REPORT RECEIVED FROM NURSE LIANE REFUSES TO WEAR SCD EDUOCATION PROVIDE ON PURPOSE OF SCD USE
[2020-08-16 08:49] VITALS: BP 146/66
[2020-08-16 11:56] VITALS: BP 146/61
--- NOTE | 2020-08-16 14:02 | NUR ---
1100 RESTING QUIETLY WITH EYES CLOSED
--- NOTE | 2020-08-16 14:16 | NUR ---
Nutrition reassessment: Pt sleeping at time of RD visit. Diet order: low sodium PO intake ~30% average of meals Labs reviewed: NH3: 150 -> down from 158 (08/15) Wt: 150# at admit and was stated wt +BM on 08/12; no others recorded since Estimated nutrition needs remain the same as initial assessment on 08/09/20 Nutrition diagnosis remains inadequate oral intake R/T liver disease with high NH3 AEB observed po intake < 75% of meals over the last several days. Nutrition goals: - PO intake =/> 75% of meals, snacks - Meet est fluid needs without fluid overload - Stable dry wt Interventions: Will provide food choices with selective menus and honor food preferences. Will offer nutritional supplements. Will order HS snack if not ordered. Recommendations: Please get a current wt to chart. RDN will follow-up on pts progress toward nutrition goals in 3-5 days.
--- NOTE | 2020-08-16 14:48 | NUR ---
1445 CHRONIC NECK PAIN 12/25 APAP GIVEN PATIENT ASKED FOR DILAUDID WHICH FELL OFF THE MAR REINSTATED DILAUDID AND GAVE 1 MG IV
--- NOTE | 2020-08-16 15:51 | NUR ---
PATIENT MIN-MOD ASST TO GET UP TO BEDSIDE AND TO STAND. PATIENT WALKED 6 FEET WITH UE SUPPORT INTO BATHROOM AND WAS MOD ASST TO SIT ON TOILET. PATIENT WAS MIN-MOD ASST TO STAND AND TO WALK 6 FEET BACK TO BED USING WALKER. PATIENT SEEMS WEAKER TODAY.
[2020-08-16 16:31] VITALS: BP 167/78
[2020-08-16 20:00] VITALS: BP 130/70
[2020-08-17 04:00] VITALS: BP 132/76
--- NOTE | 2020-08-17 08:05 | NUR ---
0700 BEDSIDE REPORT RECEIVED FROM LIANE AWAKE IN BED ASSISTED WITH REPOSITIONING NECK ON PILLOW PER REQUEST AND HELPED PT FIND CHANNEL ON TV
[2020-08-17 08:16] VITALS: BP 140/72
[2020-08-17 08:25] LABS: INR 1.47 (0.85-1.17); PROTIME 16.5 SECONDS (11.6-15.0)
[2020-08-17 08:40] LABS: BASOPHILS 0.7 % (0-2); EOSINOPHILS 1.2 % (0-7); HEMATOCRIT 36.1 % (36.0-48.0); HEMOGLOBIN 12.5 g/dL (12-16); LYMPHOCYTES 24.8 % (15-50); MCH 36.1 pg (26.0-34.0); MCHC 34.6 g/dL (31.0-37.0); MCV 104.2 fL (80.0-100.0); MONOCYTES 11.6 % (2-11); NEUTROPHILS 61.7 % (40-80); RBC 3.46 10x6/uL (4.00-5.40); RDW 18.6 % (11.5-14.5); WBC 6.4 10x3/uL (4.8-10.8)
[2020-08-17 08:43] LABS: ALBUMIN 2.5 g/dL (3.4-5.0); ANION GAP 10.5 mmol/L (8-16); BILIRUBIN - TOTAL 3.89 mg/dL (0.2-1.3); CALCIUM 8.9 mg/dL (8.5-10.1); CARBON DIOXIDE 30.3 mmol/L (21.0-32.0); CREATININE - SERUM 1.1 mg/dL (0.6-1.3); POTASSIUM - SERUM 3.8 mmol/L (3.5-5.1); PROTEIN - SERUM 5.6 g/dL (6.4-8.2)
[2020-08-17 08:49] LABS: PLATELET COUNT 110 10x3/uL (130-400)
--- NOTE | 2020-08-17 08:49 | MORECARE ---
CASE MANAGEMENT DISCHARGE SUMMARY PATIENT: BRENDA CLANCY UNIT: [id number] ADM DATE: 08/08/20 AGE: 65 : 59 SEX: F ROOM/BED: D.2239 AUTHOR: ARIA,DOC PHYSICIAN: REFERRING PHYSICIAN: FAHEEM CHAVES MD DATE OF SERVICE: 08/17/20 Case Management Discharge Planning Summary COMMENTS ENTERED DATE: 08/12/20 16:02 CT COMMENT TYPE: Discharge Planning REVIEWER: Ivet Abernathy CM met with patient at bedside after obtaining verbal consent. CM discussed availability / needs of home health, REHAB and medical equipment. Patient states her pcp Dr. 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 She states they are working toward [facility] and rehab, choice letter signed and placed on chart. Patient states she lives at home with family and has a caregiver that comes 5 days per week with senior helpers. She has a hospital bed, walker, and scooter. States has had multiple falls recently at home. I need to call Dr. Brown office and get an update. Today is Saturday and a holiday weekend. It will be Saturday before I can get in touch with his office. DCP REVIEW SUMMARY ANTICIPATED D/C DATE: EXPECTED LOS : CASE STATUS: DCP Initiated INITIAL REVIEW: 08/08/2020 INITIAL REVIEWER: Ivet Abernathy FINAL DISCHARGE DISPOSITION: : FINAL REVIEWER: FINAL REVIEW DATE: DCP Focus Questions & Answers QUESTION: ANSWER : PATIENT: BRENDA CLANCY ENCOUNTER: [id number] MEDICAL RECORD#: [id number] ADMISSION DATE: 08/08/2020 DISCHARGE DATE: ATTENDING MD: FAHEEM CORTES : AGE: 65 MARITAL STATUS: S DC PLAN ID: [id number] FACILITY: [facility] PRINTED ON: 08/17/20 8:49 CT All edits/amendments must be made on the electronic document DICTATION DATE: 08/17/2049 LABOR AND DELIVERY REGISTERED NURSE: KIM 08/17/2049 RPT#: [id number] DC DATE: STATUS: ADM IN [facility] [address] [place] [address] END OF REPORT
--- NOTE | 2020-08-17 09:22 | MORECARE ---
CASE MANAGEMENT DISCHARGE SUMMARY PATIENT: NAN CLANCYTA UNIT: [id number] ADM DATE: 08/08/20 AGE: 65 : 59 SEX: F ROOM/BED: D.2239 AUTHOR: ML KNAPP PHYSICIAN: REFERRING PHYSICIAN: FAHEEM CHAVES MD DATE OF SERVICE: 08/17/20 Case Management Discharge Planning Summary COMMENTS ENTERED DATE: 08/17/20 9:14 CT COMMENT TYPE: Discharge Planning REVIEWER: Ivet Abernathy FAXED REFERRAL TO [facility] FOR INPATIENT REHAB. ENTERED DATE: 08/12/20 16:02 CT COMMENT TYPE: Discharge Planning REVIEWER: Ivet Abernathy CM met with patient at bedside after obtaining verbal consent. CM discussed availability / needs of home health, REHAB and medical equipment. Patient states her pcp Dr. Weeks office has been working on manager intermediate placement for her and applying for fdc Medicaid. She states they are working toward [facility] and rehab, choice letter signed and placed on chart. Patient states she lives at home with family and has a caregiver that comes 5 days per week with senior helpers. She has a hospital bed, walker, and scooter. States has had multiple falls recently at home. I need to call Dr. Brown office and get an update. Today is Saturday and a holiday weekend. It will be Saturday before I can get in touch with his office. DCP REVIEW SUMMARY ANTICIPATED D/C DATE: EXPECTED LOS : CASE STATUS: DCP Initiated INITIAL REVIEW: 08/08/2020 INITIAL REVIEWER: Ivet Abernathy FINAL DISCHARGE DISPOSITION: : FINAL REVIEWER: FINAL REVIEW DATE: DCP Focus Questions & Answers QUESTION: ANSWER : PROVIDER NETWORKING REVIEW DATE: 08/17/2020 SERVICE TYPE: Inpatient Rehab REVIEWER: Ivet Abernathy PATIENT: BRENDA CLANCY ENCOUNTER: [id number] MEDICAL RECORD#: [id number] ADMISSION DATE: 08/08/2020 DISCHARGE DATE: ATTENDING MD: FAHEEM CORTES : AGE: 65 MARITAL STATUS: S DC PLAN ID: [id number] FACILITY: [facility] PRINTED ON: 08/17/20 9:22 CT All edits/amendments must be made on the electronic document DICTATION DATE: 08/17/20921 BAG SHOP WORKER: KIM 08/17/20921 RPT#: [id number] DC DATE: STATUS: ADM IN [facility] [address] [place] [address] END OF REPORT
[2020-08-17 10:12] LABS: HEPATITIS C ANTIBODY >11.0 S/CO RAT (0.0-0.9)
[2020-08-17 12:43] VITALS: BP 137/72
--- NOTE | 2020-08-17 13:56 | NUR ---
WALKED TO RESTROOM THAN AROUND TO THE OTHER SIDE OF THE BED SEEMS TO BE MORE OUT OF IT AND WEAKER NOTIFIED NSG
--- NOTE | 2020-08-17 16:27 | NUR ---
OT NOTE: PT HAS BEEN MORE LETHARGIC AND MORE CONFUSED OVER LAST SEVERAL DAYS. PT C/O NOT HAVING HAD A BM IN MANY DAYS, HOWEVER, REMINDED PT THAT SHE HAD A LARGE BM YESTERDAY WHEN I ASSISTED HER TO BATHROOM. PT DID NOT REMEMBER. ASSISTED PT TO EOB WITH MIN/MOD ASSIST. MOD/MAX ASSIST TO AMB WITH WALKER FROM BED TO TOILET. UNABLE TO LEAVE PT UNATTENDED ON TOILET DUE TO LETHARGY AND CONFUSION. PT REQUIRED MAX ASSIST FOR PERINEAL CARE; MAX ASSIST TO DOFF AND HARSH PULL UP; MOD ASSIST TO HARSH GOWN. PTS AMBULATION WAS SLIGHTLY BETTER WHEN AMB FROM TOILET TO SINK.. REQUIRED CONSTANT CUES TO STRAIGHTEN KNEES WHILE SHE WAS PERFORMING SINK HYGIENE. AMB BACK TO BED WITH MIN/MOD ASSIST. MOD ASSIST WITH SIT TO SUPINE AND REPOSITIONING BACK IN BED. PT GRIMACING IN PAIN, BUT SLOW TO RESPOND AND UNABLE TO PROVIDE EXACT LOCATION OF PAIN.. POINTS TOWARDS R FLANK AREA. NURSING NOTIFIED OF CHANGE IN CONDITION OVER LAST SEVERAL DAYS. TAWNYA AGUIRRE, OTR/L [phone]
[2020-08-17 16:38] VITALS: BP 123/69
[2020-08-17 20:00] VITALS: BP 122/59
[2020-08-18 04:00] VITALS: BP 126/62
[2020-08-18 06:01] LABS: BASOPHILS 0.5 % (0-2); EOSINOPHILS 1.4 % (0-7); HEMATOCRIT 33.5 % (36.0-48.0); HEMOGLOBIN 11.6 g/dL (12-16); MCH 36.6 pg (26.0-34.0); MCHC 34.7 g/dL (31.0-37.0); MCV 105.3 fL (80.0-100.0); MEAN PLATELET VOLUME 7.8 fL (7.4-10.4); MONOCYTES 9.1 % (2-11); PLATELET COUNT 90 10x3/uL (130-400); RBC 3.18 10x6/uL (4.00-5.40); RDW 18.1 % (11.5-14.5); WBC 6.3 10x3/uL (4.8-10.8)
[2020-08-18 06:13] LABS: INR 1.6 (0.85-1.17); PROTIME 17.7 SECONDS (11.6-15.0)
[2020-08-18 06:15] LABS: ALBUMIN 2.2 g/dL (3.4-5.0); BILIRUBIN - TOTAL 3.71 mg/dL (0.2-1.3); CALCIUM 8.4 mg/dL (8.5-10.1); CARBON DIOXIDE 32.1 mmol/L (21.0-32.0); CREATININE - SERUM 0.9 mg/dL (0.6-1.3); POTASSIUM - SERUM 4.1 mmol/L (3.5-5.1); PROTEIN - SERUM 4.8 g/dL (6.4-8.2)
[2020-08-18 07:12] LABS: PLATELET ESTIMATE DECREASED
[2020-08-18 08:46] VITALS: BP 142/70
[2020-08-18 13:10] VITALS: BP 134/85
--- NOTE | 2020-08-18 14:04 | NUR ---
Nutrition follow-up: Pt discussed during IDT team meeting Possible discharge today Diet order: low sodium PO intake ~25-50% of meals labs reviewed Wt: 150# Will continue to provide food choices and honor food preferences. RDN will follow-up on pts progress within 3-5 days.
[2020-08-18 17:55] VITALS: BP 144/85
--- NOTE | 2020-08-18 19:30 | NUR ---
OT NOTE: PT COMPLETED BED MOB WITH MIN A. PT COMPLETED FACE HYGIENE WITH SETUP. PT COMPLETED ORAL CARE WITH SETUP USING TOOTHETTE. PT COMPLETED HAND HYGIENE WITH SEUTP. [phone] MAVIS VILLEDA COTA
[2020-08-18 20:00] VITALS: BP 107/54
[2020-08-19] VITALS: BP 105/50
[2020-08-19 04:00] VITALS: BP 117/55
[2020-08-19 06:08] LABS: BASOPHILS 0.2 % (0-2); EOSINOPHILS 2.1 % (0-7); HEMATOCRIT 33.8 % (36.0-48.0); HEMOGLOBIN 11.4 g/dL (12-16); IMMATURE GRANULOCYTES 0.2 % (0-5); LYMPHOCYTE ABS# 1.95 10x3/uL (1.18-3.74); LYMPHOCYTES 29.5 % (15-50); MCH 35.2 pg (26.0-34.0); MCHC 33.7 g/dL (31.0-37.0); MCV 104.3 fL (80.0-100.0); MEAN PLATELET VOLUME 10.5 fL (7.4-10.4); MONOCYTES 11.9 % (2-11); NEUTROPHIL ABS# 3.72 10x3/uL (1.56-6.13); NEUTROPHILS 56.1 % (40-80); PLATELET COUNT 92 10x3/uL (130-400); RBC 3.24 10x6/uL (4.00-5.40); RDW 17.2 % (11.5-14.5); WBC 6.6 10x3/uL (4.8-10.8)
[2020-08-19 06:38] LABS: ALBUMIN 2.2 g/dL (3.4-5.0); BILIRUBIN - TOTAL 3.38 mg/dL (0.2-1.3); CALCIUM 8.4 mg/dL (8.5-10.1); CARBON DIOXIDE 30.2 mmol/L (21.0-32.0); CREATININE - SERUM 1.1 mg/dL (0.6-1.3); POTASSIUM - SERUM 4.2 mmol/L (3.5-5.1); PROTEIN - SERUM 4.6 g/dL (6.4-8.2)
[2020-08-19 09:14] VITALS: BP 115/51
[2020-08-19] MEDS ORDERED: CHRONULAC30 ML PO (13:03)
[2020-08-19] MEDS ORDERED: MIRALAX17 GM PO (13:03)
[2020-08-19 13:24] VITALS: BP 16/54
--- NOTE | 2020-08-19 14:26 | MORECARE ---
CASE MANAGEMENT DISCHARGE SUMMARY PATIENT: BRENDA CLANCY UNIT: [id number] ADM DATE: 08/08/20 AGE: 65 : 57 SEX: F ROOM/BED: D.2239 AUTHOR: ARIA,DOC PHYSICIAN: REFERRING PHYSICIAN: FAHEEM CHAVES MD DATE OF SERVICE: 08/19/20 Case Management Discharge Planning Summary COMMENTS ENTERED DATE: 08/19/20 14:13 CT COMMENT TYPE: Discharge Planning REVIEWER: Ivet [facility] will not take, patient is out of payed days. Plan will be to return home and cm will set up home health for her. ENTERED DATE: 08/17/20 9:14 CT COMMENT TYPE: Discharge Planning REVIEWER: Ivet Abernathy FAXED REFERRAL TO [facility] FOR INPATIENT REHAB. ENTERED DATE: 08/12/20 16:02 CT COMMENT TYPE: Discharge Planning REVIEWER: Ivet Abernathy CM met with patient at bedside after obtaining verbal consent. CM discussed availability / needs of home health, REHAB and medical equipment. Patient states her pcp Dr. Weeks office has been working on half-way placement for her and applying for termite control technician Medicaid. She states they are working toward [facility] and rehab, choice letter signed and placed on chart. Patient states she lives at home with family and has a caregiver that comes 5 days per week with senior helpers. She has a hospital bed, walker, and scooter. States has had multiple falls recently at home. I need to call Dr. Brown office and get an update. Today is Saturday and a holiday weekend. It will be Saturday before I can get in touch with his office. DCP REVIEW SUMMARY ANTICIPATED D/C DATE: EXPECTED LOS : CASE STATUS: DCP Initiated INITIAL REVIEW: 08/08/2020 INITIAL REVIEWER: Ivet Abernathy FINAL DISCHARGE DISPOSITION: : FINAL REVIEWER: FINAL REVIEW DATE: DCP Focus Questions & Answers QUESTION: ANSWER : PROVIDER NETWORKING REVIEW DATE: 08/17/2020 SERVICE TYPE: Inpatient Rehab REVIEWER: Ivet Abernathy PATIENT: BRENDA CLANCY ENCOUNTER: [id number] MEDICAL RECORD#: [id number] ADMISSION DATE: 08/08/2020 DISCHARGE DATE: ATTENDING MD: FAHEEM CORETS : AGE: 65 MARITAL STATUS: S DC PLAN ID: [id number] FACILITY: [facility] PRINTED ON: 08/19/20 14:26 CT All edits/amendments must be made on the electronic document DICTATION DATE: 08/19/20 142 DIGITAL MEDIA ASSOCIATE: KIM 08/19/20 1426 RPT#: [id number] DC DATE: STATUS: ADM IN [facility] [address] [place] [address] END OF REPORT
--- NOTE | 2020-08-19 15:47 | MORECARE ---
CASE MANAGEMENT DISCHARGE SUMMARY PATIENT: BRENDA CLANCY UNIT: [id number] ADM DATE: 08/08/20 AGE: 65 : 59 SEX: F ROOM/BED: D.2239 AUTHOR: ARIA,DOC PHYSICIAN: REFERRING PHYSICIAN: FAHEEM CHAVES MD DATE OF SERVICE: 08/19/20 Case Management Discharge Planning Summary COMMENTS ENTERED DATE: 08/19/20 15:37 CT COMMENT TYPE: Discharge Planning REVIEWER: Ivet Abernathy SPOKE WITH PATIENT'S DAUGHTER CARLOS VIA PHONE. SHE WILL REFRIGERATION ENGINEER HER MOM IN ABOUT AN HOUR. SHE WOULD LIKE HOME HEALTH WITH [facility]. I AM FAXING REFERRAL TO THEM NOW. ENTERED DATE: 08/19/20 14:13 CT COMMENT TYPE: Discharge Planning REVIEWER: Ivet Michela [facility] will not take, patient is out of payed days. Plan will be to return home and cm will set up home health for her. ENTERED DATE: 08/17/20 9:14 CT COMMENT TYPE: Discharge Planning REVIEWER: Ivet Abernathy FAXED REFERRAL TO [facility] FOR INPATIENT REHAB. ENTERED DATE: 08/12/20 16:02 CT COMMENT TYPE: Discharge Planning REVIEWER: Ivet Abernathy CM met with patient at bedside after obtaining verbal consent. CM discussed availability / needs of home health, REHAB and medical equipment. Patient states her pcp Dr. Weeks office has been working on assisted placement for her and applying for assisted Medicaid. She states they are working toward [facility] and rehab, choice letter signed and placed on chart. Patient states she lives at home with family and has a caregiver that comes 5 days per week with senior helpers. She has a hospital bed, walker, and scooter. States has had multiple falls recently at home. I need to call Dr. Brown office and get an update. Today is Saturday and a holiday weekend. It will be Saturday before I can get in touch with his office. DCP REVIEW SUMMARY ANTICIPATED D/C DATE: EXPECTED LOS : CASE STATUS: DCP Initiated INITIAL REVIEW: 08/08/2020 INITIAL REVIEWER: Ivet Abernathy FINAL DISCHARGE DISPOSITION: : FINAL REVIEWER: FINAL REVIEW DATE: DCP Focus Questions & Answers QUESTION: ANSWER : PROVIDER NETWORKING REVIEW DATE: 08/17/2020 SERVICE TYPE: Inpatient Rehab REVIEWER: Ivet Abernathy PATIENT: BRENDA CLANCY ENCOUNTER: [id number] MEDICAL RECORD#: [id number] ADMISSION DATE: 08/08/2020 DISCHARGE DATE: ATTENDING MD: FAHEEM CORTES : AGE: 65 MARITAL STATUS: S DC PLAN ID: [id number] FACILITY: [facility] PRINTED ON: 08/19/20 15:47 CT All edits/amendments must be made on the electronic document DICTATION DATE: 08/19/201546 LEAD BI DEVELOPER: DM 08/19/20 154 RPT#: [id number] DC DATE: STATUS: ADM IN [facility] [address] [place] [address] END OF REPORT
--- NOTE | 2020-08-19 16:35 | NUR ---
OT NOTE: PT COMPLETED SIDE ROLLING WITH MIN A. PT COMPLETED SUPINE TO SIT WITH MOD A. PT COMPLETED EOB SITTING WITH CGA. PT COMPLETED HAIR GROOMING WITH MIN-MOD A. PT COMPLETED FACE HYGIENE WITH SETUP. PT COMPLETED SIT TO SUPINE WITH MIN-MOD A. [phone] THANK YOU,MIGUEL NAVARRETE
--- NOTE | 2020-08-22 09:47 | MORECARE ---
CASE MANAGEMENT DISCHARGE SUMMARY PATIENT: BRENDA CLANCY UNIT: [id number] ADM DATE: 08/08/20 AGE: 65 : 59 SEX: F ROOM/BED: D.2239 AUTHOR: ARIA,DOC PHYSICIAN: REFERRING PHYSICIAN: FAHEEM CHAVES MD DATE OF SERVICE: 08/22/20 Case Management Discharge Planning Summary COMMENTS ENTERED DATE: 08/19/20 15:37 CT COMMENT TYPE: Discharge Planning REVIEWER: Ivet Abernathy SPOKE WITH PATIENT'S DAUGHTER CARLOS VIA PHONE. SHE WILL DOUBLE CORNER CUTTER HER MOM IN ABOUT AN HOUR. SHE WOULD LIKE HOME HEALTH WITH [facility]. I AM FAXING REFERRAL TO THEM NOW. ENTERED DATE: 08/19/20 14:13 CT COMMENT TYPE: Discharge Planning REVIEWER: Ivet Michela [facility] will not take, patient is out of payed days. Plan will be to return home and cm will set up home health for her. ENTERED DATE: 08/17/20 9:14 CT COMMENT TYPE: Discharge Planning REVIEWER: Ivet Abernathy FAXED REFERRAL TO [facility] FOR INPATIENT REHAB. ENTERED DATE: 08/12/20 16:02 CT COMMENT TYPE: Discharge Planning REVIEWER: Ivet Abernathy CM met with patient at bedside after obtaining verbal consent. CM discussed availability / needs of home health, REHAB and medical equipment. Patient states her pcp Dr. Weeks office has been working on [facility]cf placement for her and applying for chcf Medicaid. She states they are working toward [facility] and rehab, choice letter signed and placed on chart. Patient states she lives at home with family and has a caregiver that comes 5 days per week with senior helpers. She has a hospital bed, walker, and scooter. States has had multiple falls recently at home. I need to call Dr. Brown office and get an update. Today is Saturday and a holiday weekend. It will be Saturday before I can get in touch with his office. DCP REVIEW SUMMARY ANTICIPATED D/C DATE: EXPECTED LOS : CASE STATUS: DCP Initiated INITIAL REVIEW: 08/08/2020 INITIAL REVIEWER: Ivet Abernathy FINAL DISCHARGE DISPOSITION: : FINAL REVIEWER: FINAL REVIEW DATE: DCP Focus Questions & Answers QUESTION: ANSWER : PROVIDER NETWORKING REVIEW DATE: 08/17/2020 SERVICE TYPE: Inpatient Rehab REVIEWER: Ivet Abernathy PATIENT: BRENDA CLANCY ENCOUNTER: [id number] MEDICAL RECORD#: [id number] ADMISSION DATE: 08/08/2020 DISCHARGE DATE: 08/19/2020 ATTENDING MD: FAHEEM CORTES : AGE: 65 MARITAL STATUS: S DC PLAN ID: [id number] FACILITY: [facility] PRINTED ON: 08/22/20 9:47 CT All edits/amendments must be made on the electronic document DICTATION DATE: 08/22/20946 LANGUAGE PATH: KIM 08/22/20946 RPT#: [id number] DC DATE:08/19/20 STATUS: DIS IN [facility] [address] [place] [address] END OF REPORT
--- NOTE | 2020-08-23 11:22 | MORECARE ---
CASE MANAGEMENT DISCHARGE SUMMARY PATIENT: BRENDA CLANCY UNIT: [id number] ADM DATE: 08/08/20 AGE: 65 : 59 SEX: F ROOM/BED: D.2239 AUTHOR: ARIA,DOC PHYSICIAN: REFERRING PHYSICIAN: FAHEEM CHAVES MD DATE OF SERVICE: 08/23/20 Case Management Discharge Planning Summary COMMENTS ENTERED DATE: 08/19/20 15:37 CT COMMENT TYPE: Discharge Planning REVIEWER: Ivet Abernathy SPOKE WITH PATIENT'S DAUGHTER CARLOS VIA PHONE. SHE WILL TOOL DRESSER HER MOM IN ABOUT AN HOUR. SHE WOULD LIKE HOME HEALTH WITH [facility]. I AM FAXING REFERRAL TO THEM NOW. ENTERED DATE: 08/19/20 14:13 CT COMMENT TYPE: Discharge Planning REVIEWER: Ivet Michela [facility] will not take, patient is out of payed days. Plan will be to return home and cm will set up home health for her. ENTERED DATE: 08/17/20 9:14 CT COMMENT TYPE: Discharge Planning REVIEWER: Ivet Abernathy FAXED REFERRAL TO [facility] FOR INPATIENT REHAB. ENTERED DATE: 08/12/20 16:02 CT COMMENT TYPE: Discharge Planning REVIEWER: Ivet Abernathy CM met with patient at bedside after obtaining verbal consent. CM discussed availability / needs of home health, REHAB and medical equipment. Patient states her pcp Dr. Weeks office has been working on residential placement for her and applying for residential Medicaid. She states they are working toward [facility] and rehab, choice letter signed and placed on chart. Patient states she lives at home with family and has a caregiver that comes 5 days per week with senior helpers. She has a hospital bed, walker, and scooter. States has had multiple falls recently at home. I need to call Dr. Brown office and get an update. Today is Saturday and a holiday weekend. It will be Saturday before I can get in touch with his office. DCP REVIEW SUMMARY ANTICIPATED D/C DATE: EXPECTED LOS : CASE STATUS: DCP Initiated INITIAL REVIEW: 08/08/2020 INITIAL REVIEWER: Ivet Abernathy FINAL DISCHARGE DISPOSITION: : FINAL REVIEWER: FINAL REVIEW DATE: DCP Focus Questions & Answers QUESTION: ANSWER : PROVIDER NETWORKING REVIEW DATE: 08/17/2020 SERVICE TYPE: Inpatient Rehab REVIEWER: Ivet Abernathy PATIENT: BRENDA CLANCY ENCOUNTER: [id number] MEDICAL RECORD#: [id number] ADMISSION DATE: 08/08/2020 DISCHARGE DATE: 08/19/2020 ATTENDING MD: FAHEEM CORTES : AGE: 65 MARITAL STATUS: S DC PLAN ID: [id number] FACILITY: [facility] PRINTED ON: 08/23/20 11:22 CT All edits/amendments must be made on the electronic document DICTATION DATE: 08/23/20 112 WILTON WEAVER: KIM 08/23/20 112 RPT#: [id number] DC DATE:08/19/20 STATUS: DIS IN [facility] [address] [place] [address] END OF REPORT
== END 2020-08-19 20:00 | disposition home health service (06) | DRG 442 ==
LOC: D.ER 20:24 → D.MS 23:08
PROVIDERS: Emergency Medicine; Family Medicine; ADMIT Emergency Medicine; ATTEND Emergency Medicine
DX: K72.00 Acute and subacute hepatic failure without coma (principal); E72.20 Disorder of urea cycle metabolism, unspecified; E03.9 Hypothyroidism, unspecified; G47.33 Obstructive sleep apnea (adult) (pediatric); K74.60 Unspecified cirrhosis of liver; G89.29 Other chronic pain; I25.10 Atherosclerotic heart disease of native coronary artery without angina pectoris; Z86.19 Personal history of other infectious and parasitic diseases; K21.9 Gastro-esophageal reflux disease without esophagitis; I50.9 Heart failure, unspecified; K59.00 Constipation, unspecified; B19.20 Unspecified viral hepatitis C without hepatic coma; D69.6 Thrombocytopenia, unspecified